=== PATIENT | female | born 1930 | race Caucasian/White ===

== ENCOUNTER 2017-06-03 15:59 | Inpatient (IN) ==
--- NOTE | 2017-06-03 16:42 | Emergency Department Report ---
URI/Sore Throat HPI - General Chief Complaint: Upper Respiratory Infection <Oleg Jeagern Q - 06/03/17 16:41 > Stated Complaint: flu symptons, low oxygen <Javier Jaeger Q - 06/03/17 16:41> Time Seen by Provider: 06/03/17 16:40 <Oleg Jaegern Taj - 06/03/17 16:41> Source: patient, family <Oleg Jaegern Taj - 06/03/17 18:54> Mode of arrival: wheelchair <Oleg Jaegern 06/03/17 18:54> Limitations: no limitations <Oleg Jaegern - 06/03/17 18:54> - History of Present Illness HPI Narrative: Patient is an 87-year-old female, presents fevers primary for evaluation of shortness of air. Patient's had 2 weeks history of cough, congestion, originally was having some fevers however those of resolve. Patient was seen primary medical doctor's office approximately 10 days ago was given a productive diagnosis of influenza however since she was outside the window patient was not started on Tamiflu, instead to cover patient was given azithromycin. Patient took the azithromycin, however no improvement of symptoms continuing to have cough, congestion and low-grade fevers. Today patient was found to be mildly hypoxic oxygen saturations 87-88%, so patient was brought to the ER for evaluation <Oleg Jaegern - 06/03/17 18:54> MD Complaint: fever, sore throat <Oleg Jaegern - 06/03/17 18:54> Onset (ago): week(s) <Oleg Jaegern Taj - 06/03/17 18:54> - Related Data Home Medications Medication Instructions Recorded Confirmed Acetaminophen [Acetaminophen Extra 500 mg PO Q4H PRN 06/03/17 06/03/17 Strength] Carbidopa/Levodopa 1.5 tab PO QID 06/03/17 06/03/17 [Carbidopa-Levodopa 25-100 Tab] Omeprazole [Prilosec] 20 mg PO HS 06/03/17 06/03/17 Rasagiline Mesylate 0.5 mg PO HS 06/03/17 06/03/17 Sertraline [Zoloft] 50 mg PO HS 06/03/17 06/03/17 guaiFENesin [Guaifenesin] 100 mg PO Q4H PRN 06/03/17 06/03/17 <Javier Jaeger Q - 06/03/17 16:41> Allergies Allergy/AdvReac Type Severity Reaction Status Date / Time Iodinated Contrast- Oral and Allergy Unknown Verified 06/03/17 16:28 IV Dye <Javier Jaeger Q - 06/03/17 16:41> Review of Systems Constitutional: Denies: fever, chills <Javier Jaeger Q - 06/03/17 18:54> ENT: Denies: ear pain, throat pain, dental pain <Javier Jaeger Q - 06/03/17 18 :54> Cardiovascular: Reports: dyspnea on exertion. Denies: chest pain, palpitations <Javier Jaeger Q - 06/03/17 18:54> Respiratory: Reports: cough, dyspnea. Denies: wheezes <Javier Jaeger Q - 09/13 18:54> Gastrointestinal: Denies: abdominal pain, nausea, vomiting <Javier Jaeger Q - 06/03/17 18:54> Neurological: Denies: headache, weakness <Javier Jaeger Q - 06/03/17 18:54> PFSH Patient Stated Medical History Dementia Yes Parkinson's Disease Yes: "PARKINSISMS" Bronchitis Yes: HX OF Hx Incontinence Yes Anemia Yes Osteoarthritis Yes Shingles Yes Depression Yes: SERTRALINE <Javier Jaeger Q - 06/03/17 16:41> - Social History Smoking status: Never smoker <Javier Jaeger Q - 06/03/17 16:41> Substance use type: does not use <Javier Jaeger Q - 06/03/17 18:54> Alcohol intake frequency: does not drink <Javier Jaeger Q - 06/03/17 18:54> Physical Exam - Limitations Limitations: physical limitation <Javier Jaeger Q - 06/03/17 18:54> - Eye Eye exam: Present: PERRL, EOMI <Javier Jaeger Q - 06/03/17 18:54> - ENT ENT exam: Present: normal oropharynx, mucous membranes moist <Javier Jaeger Q - 06/03/17 18:54> - Chest Chest inspection: Present: symmetric chest wall rise. Absent: tenderness < Javier Jaeger 06/03/17 18:54> - Respiratory Respiratory exam: Present: crackles. Absent: accessory muscle use, prolonged expiratory phase <Javier Jaeger 06/03/17 18:54> - Cardiovascular Cardiovascular exam: Present: regular rate, normal rhythm, normal heart sounds <Javier Jaeger 06/03/17 18:54> - Abdominal Exam Abdominal exam: Present: soft, normal bowel sounds. Absent: distention, tenderness <Javier Jaeger 06/03/17 18:54> - Back Exam Back exam: Absent: CVA tenderness (R), CVA tenderness (L) <Javier Jaeger 06/03/17 18:54> - Skin Skin exam: Present: warm, dry <Javier Jaeger 06/03/17 18:54> - Neurological Exam Neurological exam: Present: alert, oriented X3 <Javier Jaeger 06/03/17 18: 54> - Psychiatric Psychiatric exam: Present: normal affect, normal mood <Javier Jaeger 06/03 18:54> Course - Consultations Consultation #1: Telehospitalist: Will place pt in the hospital. Requests 1gm IV vanc to cover for possible MRSA. Requests DNR status documentation. <06/03/17 19:17> Time: 19:10 <06/03/17 19:17> Vital Signs Temperature 97.5 F 06/03/17 16:16 Pulse Rate 102 H 06/03/17 16:16 Respiratory Rate 26 H 06/03/17 16:16 Blood Pressure 107/65 06/03/17 16:16 Pulse Oximetry 87 L 06/03/17 16:16 Temperature 96.9 F 06/04/17 07:30 Pulse Rate 69 06/04/17 07:30 Respiratory Rate 18 06/04/17 07:30 Blood Pressure 147/69 H 06/04/17 07:30 Pulse Oximetry 97 06/04/17 07:30 <Jaiver Jaeger 06/03/17 16:41> Upper Respiratory Infection - MDM Narrative Medical decision making narrative: Care of pt assumed at 1900. Pt with s/s c/w of CAP following influenza. PORT score is 127. Will contact hospitalist for eval and likely admission. <August,[facility] - 06/03/17 19:14> - Differential Diagnosis Differential diagnosis: Likely: upper respiratory infection, otitis media, viral infection, bronchitis, influenza, pharyngitis <August,[facility] 06/03/17 19 :14> - Medical Records Attestation: I reviewed the patient's medical records. <August,[facility] 19:14> - Lab Data Attestation: I reviewed the patient's lab results. <August,[facility] 06/03/17 19:14> I reviewed the patient's lab results. <MilJavier - 06/03 18:54> Result diagrams: 06/04/17 03:59 06/04/17 03:59 <WinonaJavier - 06/03/17 16:41> Lab Results 06/03/17 06/03/17 06/03/17 Range/Units 17:24 17:24 17:24 WBC 9.8 (4.5-11.0) T/MM3 RBC 3.90 L (4.00-5.20) M/MM3 Hgb 11.6 L (12-16) GM/DL Hct 37.1 (36-46) % MCV 95.1 (80-100) UM3 MCH 29.7 (26-34) UUG MCHC 31.3 (31-37) GM/DL RDW Std Deviation 51.6 H (36.9-50.2) FL Plt Count 576 H (130-400) T/MM3 MPV 8.7 L (9.4-12.4) UM3 Immature Gran % (Auto) 0.5 (0.0-0.5) % Neut % (Auto) 75.7 H (33-66) % Lymph % (Auto) 15.2 L (23-45) % [place] % (Auto) 8.4 (0-9.0) % Eos % (Auto) 0.0 (0-4) % Baso % (Auto) 0.2 (0-2) % Neut # (Auto) 7.4 (1.8-7.7) T/MM3 Lymph # (Auto) 1.5 (1-4.8) T/MM3 [place] # (Auto) 0.8 (0-0.8) T/MM3 Eos # (Auto) 0.0 (0-0.5) T/MM3 Baso # (Auto) 0.0 (0-0.2) T/MM3 Abs Immat Gran (auto) 0.05 H (0.00-0.03) T/MM3 VBG pH (7.31-7.41) VBG pCO2 (40-52) MMHG VBG pO2 (40-52) MMHG VBG HCO3 (22-26) MEQ/L VBG Total CO2 MEQ/L VBG O2 Saturation % VBG Base Excess (-2.0-2.0) MMOL/L O2 Delivery Method Turbidity < 20 (0-20) Sodium 144 (134-144) MEQ/L Potassium 4.4 (3.6-5) MEQ/L Chloride 110 H (98-107) MEQ/L Carbon Dioxide 24 (22-30) MEQ/L Anion Gap 10 (5-15) MEQ/L BUN 29.0 H (7-17) MG/DL Creatinine 0.9 (0.7-1.2) MG/DL GFR Calculation 59 BUN/Creatinine Ratio 32 H (6-26) RATIO Glucose 132 H (65-110) MG/DL Calculated Osmolality 285 H (261-280) MOSM/KG Calcium 9.3 (8.4-10.2) MG/DL Total Bilirubin 0.60 (0.20-1.30) MG/DL Icterus Index < 2 (0-7) AST 52 H (14-36) U/L ALT 55 H (9-52) U/L Alkaline Phosphatase 122 (38-126) U/L Troponin I 0.018 (0-0.12) ng/ml B-Natriuretic Peptide 3470 H (0-175) pg/mL Total Protein 7.5 (6.3-8.2) G/DL Albumin 3.8 (3.5-5.0) G/DL Globulin 3.7 H (2.4-3.6) G/DL Albumin/Globulin Ratio 1.0 L (1.1-2.2) RATIO Plasma Lactate 1.6 (0.6-2.2) MMOL/L Procalcitonin 0.61 NG/ML Specimen Hemolysis < 15 (0-25) 06/03/17 Range/Units 19:13 WBC (4.5-11.0) T/MM3 RBC (4.00-5.20) M/MM3 Hgb (12-16) GM/DL Hct (36-46) % MCV (80-100) UM3 MCH (26-34) UUG MCHC (31-37) GM/DL RDW Std Deviation (36.9-50.2) FL Plt Count (130-400) T/MM3 MPV (9.4-12.4) UM3 Immature Gran % (Auto) (0.0-0.5) % Neut % (Auto) (33-66) % Lymph % (Auto) (23-45) % [place] % (Auto) (0-9.0) % Eos % (Auto) (0-4) % Baso % (Auto) (0-2) % Neut # (Auto) (1.8-7.7) T/MM3 Lymph # (Auto) (1-4.8) T/MM3 [place] # (Auto) (0-0.8) T/MM3 Eos # (Auto) (0-0.5) T/MM3 Baso # (Auto) (0-0.2) T/MM3 Abs Immat Gran (auto) (0.00-0.03) T/MM3 VBG pH 7.550 H (7.31-7.41) VBG pCO2 30 L (40-52) MMHG VBG pO2 86 H (40-52) MMHG VBG HCO3 26 (22-26) MEQ/L VBG Total CO2 27.1 MEQ/L VBG O2 Saturation 98.0 % VBG Base Excess 4.3 H (-2.0-2.0) MMOL/L O2 Delivery Method Room air Turbidity (0-20) Sodium (134-144) MEQ/L Potassium (3.6-5) MEQ/L Chloride (98-107) MEQ/L Carbon Dioxide (22-30) MEQ/L Anion Gap (5-15) MEQ/L BUN (7-17) MG/DL Creatinine (0.7-1.2) MG/DL GFR Calculation BUN/Creatinine Ratio (6-26) RATIO Glucose (65-110) MG/DL Calculated Osmolality (261-280) MOSM/KG Calcium (8.4-10.2) MG/DL Total Bilirubin (0.20-1.30) MG/DL Icterus Index (0-7) AST (14-36) U/L ALT (9-52) U/L Alkaline Phosphatase (38-126) U/L Troponin I (0-0.12) ng/ml B-Natriuretic Peptide (0-175) pg/mL Total Protein (6.3-8.2) G/DL Albumin (3.5-5.0) G/DL Globulin (2.4-3.6) G/DL Albumin/Globulin Ratio (1.1-2.2) RATIO Plasma Lactate (0.6-2.2) MMOL/L Procalcitonin NG/ML Specimen Hemolysis (0-25) <Javier Jaeger Q - 06/03/17 18:54> - Radiology Data Attestation: I reviewed the patient's radiology results. <AugustVinh M 09/13 19:14> I reviewed the patient's radiology results. <Javier Jaeger Q 06/03/17 18:54> Left lower lobe infiltrate <Javier Jaeger Q 06/03/17 18:54> Disposition Clinical Impression: Hypoxia CAP (community acquired pneumonia) Qualifiers: Laterality: right Lung location: lower lobe of lung Qualified Code(s): J18.1 - Lobar pneumonia, unspecified organism <Javier Jaeger Q - 06/04/17 12:44> Disposition: 02 To [facility] Acute Care <Javier Jaeger Q - 06/04/17 12:44> Print Language: Slovak <Javier Jaeger Q - 06/04/17 12:44> Condition: Improved <Javier Jaeger Q - 06/04/17 12:44> Instructions: <Javier Jaeger Q - 06/03/17 16:41> Prescriptions: No Action Rasagiline Mesylate 0.5 mg PO HS Acetaminophen [Acetaminophen Extra Strength] 500 mg PO Q4H PRN PRN Reason: Pain Carbidopa/Levodopa [Carbidopa-Levodopa 25-100 Tab] 1.5 tab PO QID guaiFENesin [Guaifenesin] 100 mg PO Q4H PRN PRN Reason: Prn Orders Sertraline [Zoloft] 50 mg PO HS Omeprazole [Prilosec] 20 mg PO HS <Javier Jaeger Q - 06/03/17 16:41> Referrals: Willy Shankar DO [Family Provider] - <Javier Jaeger - 06/03/17 16: 41> Forms: <Javier Jaeger - 06/03/17 16:41> Time of Disposition: 19:17 <AugustVinh - 06/03/17 19:17> - Seen By: physician <AugustVinh - 06/03/17 19:17>
--- OUTSIDE RECORDS SUMMARY | 2017-06-03 16:47 | External Medical Summary | Referral Summary ---
:1930 Author [facility] Address [address] [place] [address] [place] [id number] Care Team Providers Name Role Phone Willy Shankar Primary Care Physician Encounter VC Date(s): 05/04/15 - 05/04/15 [facility] [place] [phone] [place] Discharge Diagnosis: Cough Discharge Disposition: 01-Home or Self Care Attending Physician: Shreya Joyner APRN Admitting Physician: Shreya Joyner APRN Vital Signs Most recent to oldest [Reference Range]: 1 Temperature Tympanic [36.6-38.1 degC] 36.5 degC *LOW* (05/04/15 10:42 AM) Peripheral Pulse Rate [60-100 bpm] 66 bpm (05/04/15 10:42 AM) Blood Pressure [90-140/60-90 mmHg] 110/54 mmHg (05/04/15 10:42 AM) SpO2 96 % (05/04/15 10:42 AM) Problem List Condition Effective Dates Status Health Status Informant Allergic rhinitis(Confirmed) Active Alzheimer's disease Active (disorder)(Confirmed) Alzheimer's disease(Confirmed) Active Basal cell carcinoma(Confirmed)1 Active Benign essential tremor(Confirmed) Active Diarrhea (finding)(Confirmed) Active Diarrhea(Confirmed) Active Hay fever(Confirmed) Active Irritable bowel syndrome(Confirmed) Active Parkinsonism(Confirmed) Active 1Facial Surgery Allergies, Adverse Reactions, Alerts No Known Allergies Medications carbidopa-levodopa 25 mg-100 mg oral tablet 1 tabs, Oral, QID, # 270 tabs, 2 Refill(s), Pharmacy: [facility] Start Date: 03/31/15 Status: Orderedconjugated estrogens 0.625 mg/g vaginal cream with applicator 1 g, Vaginal, qPM, # 42 g, 2 Refill(s), Pharmacy: [facility] Start Date: 01/10/15 Status: Orderedmelatonin 10 mg oral capsule 1 caps, Oral, Bedtime (once a day), 0 Refill(s) Start Date: 08/20/14 Status: OrderedNamenda 10 mg oral tablet 10 mg 1 tabs, Oral, BID, last refill until seen you will need to set up appointment with a new doc. or Dr. Castorena, # 60 tabs, 0 Refill(s), Pharmacy: [facility], 1 tabs Oral BID,Instr:last refill until seen ; you will need to set... Start Date: 01/04/15 Status: Orderedomeprazole 20 mg oral delayed release capsule 1 caps, Oral, Daily, # 90 caps, 3 Refill(s), Pharmacy: [facility], 1 caps Oral Daily Start Date: 08/20/14 Status: OrderedProbiotic Formula oral capsule caps, Oral, Daily, 0 Refill(s) Start Date: 06/24/14 Status: Orderedpropranolol 60 mg oral tablet 1 tabs, Oral, TID, # 270 tabs, 3 Refill(s), Pharmacy: [facility], 1 tabs OralTID Start Date: 08/20/14 Status: Orderedsertraline 25 mg oral tablet 1 tabs, Oral, Daily, # 90 tabs, 3 Refill(s), Pharmacy: [facility], 1 tabs Oral Daily Start Date: 08/20/14 Status: Ordered Results Hematology Most recent to oldest [Reference Range]: 1 WBC [5.0-10.0 10*3/uL] 5.9 10*3/uL (05/04/15 11:18 AM) RBC [3.70-5.20] 3.88 (05/04/15 11:18 AM) Hgb [12.0-16.0 gm/dL] 12.0 gm/dL (05/04/15 11:18 AM) Hct [37.0-47.0 %] 37.4 % (05/04/15 11:18 AM) MCV [80.0-96.0 fL] 96.4 fL *HI* (1/6/16 11:18 AM) MCH [26.0-34.0 pg] 30.9 pg (05/04/15 11:18 AM) MCHC [32.0-36.0 gm/dL] 32.1 gm/dL (05/04/15 11:18 AM) RDW [0.0-14.5 %] 14.4 % (05/04/15 11:18 AM) Platelet [150-400 10*3/uL] 242 10*3/uL (05/04/15 11:18 AM) MPV [8.8-14.8 fL] 9.7 fL (05/04/15 11:18 AM) Neutrophils [50-70 %] 61 % (05/04/15 11:18 AM) Lymphocytes [20-40 %] 30 % (05/04/15 11:18 AM) Monocytes [4-8 %] 6 % (05/04/15 11:18 AM) Eosinophils [0-6 %] 3 % (05/04/15 11:18 AM) Basophils [0-2 %] 0 % (05/04/15 11:18 AM) Neutro Absolute [2.50-7.00 10*3] 3.59 10*3 (05/04/15 11:18 AM) Lymph Absolute [1.00-4.00 10*3] 1.73 10*3 (05/04/15 11:18 AM) [place] Absolute [0.20-0.80 10*3] 0.35 10*3 (05/04/15 11:18 AM) Eos Absolute [0.00-0.60 10*3] 0.18 10*3 (05/04/15 11:18 AM) Baso Absolute [0.00-0.30] 0.02 (05/04/15 11:18 AM) Immunizations Vaccine Date Refusal Reason influenza virus vaccine, inactivated 02/22/14 influenza virus vaccine, live 02/06/13 influenza virus vaccine, live 02/04/12 pneumococcal 13-valent conjugate vaccine 02/22/14 pneumococcal 23-polyvalent vaccine 01/10/15 tetanus-diphth toxoids (Td) adult/adol 01/11/09 zoster vaccine live 01/11/09 Procedures Procedure Date Related Diagnosis Body Site Procedure - Right Carpal Ganglionectomy 7/8/10 Basal cell carcinoma Removal1 2009 Basal cell carcinoma Removal2 2006 Appendectomy Cataract Left 12nd removal L Eye.21st one chin Social History Social History Type Response Smoking Status Never smoker Assessment and Plan No data available for this section
--- OUTSIDE RECORDS SUMMARY | 2017-06-03 16:47 | External Medical Summary | Referral Summary ---
:1930 Author Organization [facility] Address [address] [facility] [address] [place] [address] Care Team Providers Name Role Phone Willy Shankar Primary Care Physician Encounter VC Date(s): 02/28/16 - 02/28/[address] [facility] [address] [facility] [address] [place] [address]- [place] Discharge Diagnosis: Atypical parkinsonism Discharge Disposition: 01-Home or Self Care Attending Physician: Aldair Roman MD Admitting Physician: Aldair Roman MD Vital Signs Most recent to oldest [Reference Range]: 1 Peripheral Pulse Rate [60-100 bpm] 71 bpm (02/28/16 3:20 PM) Blood Pressure [90-140/60-90 mmHg] 108/58 mmHg (02/28/16 3:20 PM) SpO2 95 % (02/28/16 3:20 PM) Problem List Condition Effective Dates Status Health Status Informant Allergic rhinitis(Confirmed) Active Alzheimer's disease Active (disorder)(Confirmed) Alzheimer's disease(Confirmed) Active Basal cell carcinoma(Confirmed)1 Active Benign essential tremor(Confirmed) Active Diarrhea (finding)(Confirmed) Active Diarrhea(Confirmed) Active Hay fever(Confirmed) Active Irritable bowel syndrome(Confirmed) Active Parkinsonism(Confirmed) Active 1Facial Surgery Allergies, Adverse Reactions, Alerts Substance Reaction Severity Status iodine Active Medications Azilect 1 mg oral tablet 1 mg 1 tabs, Oral, Daily, take 0.5 tab for 14 days, then increase to 1 tab daily , # 30 tabs, 11 Refill(s), Pharmacy: [facility] [id number], 1 tabs Oral Daily,x30 days,Instr:take 0.5 tab for 14 days, then increase to 1 tab daily Start Date: 02/28/16 Stop Date: 02/22/17 Status: OrderedBenadryl 25 mg oral tablet See Instructions, 2 tabs Oral 1 hr prior to exam, # 2 tabs, 0 Refill(s), Pharmacy: [facility] [id number], 2 tabs Oral 1 hr prior to exam Start Date: 01/19/16 Stop Date: 02/02/16 Status: Orderedcarbidopa-levodopa 25 mg-100 mg oral tablet 2 tabs, Oral, TID, # 180 tabs, 4 Refill(s), [facility] Start Date: 01/09/16 Stop Date: 06/07/16 Status: Orderedcetirizine Daily, 0 Refill(s) Start Date: 12/26/15 Status: OrderedDiflucan 150 mg oral tablet 150 mg 1 tabs, Oral, qWeek, # 4 tabs, 0 Refill(s), Pharmacy: [facility] [id number], 1 tabs OralqWeek Start Date: 02/24/16 Stop Date: 03/26/16 Status: OrderedHospital Bed (DME) DME Item Hospital bed, See Instructions, # 1 Each, 0 Refill(s), Supply Start Date: 12/29/15 Status: Orderednystatin 100,000 units/g topical cream 1 idalia, Topical, BID, to affected area, # 15 g, 0 Refill(s) Start Date: 09/16/15 Status: Orderedomeprazole 20 mg oral delayed release capsule 20 mg 1 caps, Oral, Daily, # 90 caps, 3 Refill(s), Pharmacy: [facility], 1 caps Oral Daily Start Date: 07/21/15 Status: Orderedsertraline 25 mg oral tablet 25 mg 1 tabs, Oral, Daily, # 90 tabs, 3 Refill(s), Pharmacy: [facility], 1 tabs Oral Daily Start Date: 10/11/15 Status: Ordered Results No data available for this section Immunizations Vaccine Date Refusal Reason influenza virus vaccine, inactivated 02/22/14 influenza virus vaccine, live 02/06/13 influenza virus vaccine, live 02/04/12 pneumococcal 13-valent conjugate vaccine 02/22/14 pneumococcal 23-polyvalent vaccine 01/10/15 tetanus-diphth toxoids (Td) adult/adol 01/11/09 zoster vaccine live 01/11/09 Procedures Procedure Date Related Diagnosis Body Site Procedure - Right Carpal Ganglionectomy 11/03/09 Basal cell carcinoma Removal1 2009 Basal cell carcinoma Removal2 2006 Appendectomy Cataract Left 12nd removal L Eye.21st one chin Social History Social History Type Response Smoking Status Never smoker Assessment and Plan Extracted from: Title: Office Visit Note Author: Aldair Roman MD Date: 02/28/16 Assessment/Plan 1.- Gait disturbances 2.- Cognitive impairment 3.- Urinary incontinence 4.- Parkinsonism 5.- Abnormal Datscan 86 yo F with progressive cognitive and gait disturbances for at least 4 years. 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 Another possibility brought up is a concomitant NPH process. I discussed w pt's daughter and son in law, the chances of having two different proces ses are low but not zero. Given reported improvement to higher doses of levodopa, I will add Azilect and re-eval in 1-2 months. If no improvement is noted, family may consider cysternography for eval of possible concomitant NPH. They do consider that if cysternography is positive , they will proceed with shunt in order to improve her life quality/gait if possible. They do understand there is the chance that after shunt placement,cognition and gait my not significantly improve. Time spent with the patient was 25 minutes. Greater than 50% of that time was spent counseling the patient, discussing treatment plan and options, answering questions, and follow up plan.
--- OUTSIDE RECORDS SUMMARY | 2017-06-03 16:47 | External Medical Summary | Referral Summary ---
:1930 Author Organization [facility] Address [address] [place] [address] [place] [phone] Care Team Providers Name Role Phone Willy Shankar Primary Care Physician Encounter VC Date(s): 03/08/15 - 03/08/15 [facility] [address] [place] [phone] [place] Discharge Diagnosis: Cough Discharge Diagnosis: Vaginal odor Discharge Disposition: 01-Home or Self Care Attending Physician: Shreya Joyner APRN Admitting Physician: Shreya Joyner APRN Vital Signs Most recent to oldest [Reference Range]: 1 Temperature Tympanic [36.6-38.1 degC] 36.5 degC *LOW* (03/08/15 10:04 AM) Peripheral Pulse Rate [60-100 bpm] 64 bpm (03/08/15 10:04 AM) Blood Pressure [90-140/60-90 mmHg] 108/54 mmHg (03/08/15 10:04 AM) SpO2 95 % (03/08/15 10:04 AM) Problem List Condition Effective Dates Status Health Status Informant Allergic rhinitis(Confirmed) Active Alzheimer's disease Active (disorder)(Confirmed) Alzheimer's disease(Confirmed) Active Basal cell carcinoma(Confirmed)1 Active Benign essential tremor(Confirmed) Active Diarrhea (finding)(Confirmed) Active Diarrhea(Confirmed) Active Hay fever(Confirmed) Active Irritable bowel syndrome(Confirmed) Active Parkinsonism(Confirmed) Active 1Facial Surgery Allergies, Adverse Reactions, Alerts No Known Allergies Medications betamethasone dipropionate, augmented 0.05% topical cream 1 idalia, Topical, TID, vaginal itching, to affected area, # 50 g, 0 Refill(s), Pharmacy: [id number] Start Date: 03/08/15 Status: Orderedcarbidopa-levodopa 25 mg-100 mg oral tablet 1 tabs, Oral, TID, # 270 tabs, 0 Refill(s), Pharmacy: [facility] Start Date: 12/27/14 Status: Orderedconjugated estrogens 0.625 mg/g vaginal cream with applicator 1 g, Vaginal, qPM, # 42 g, 2 Refill(s), Pharmacy: [facility] Start Date: 01/10/15 Status: Orderedmelatonin 10 mg oral capsule 1 caps, Oral, Bedtime (once a day), 0 Refill(s) Start Date: 08/20/14 Status: OrderedNamenda 10 mg oral tablet 10 mg 1 tabs, Oral, BID, last refill until seen you will need to set up appointment with a new doc. or Dr. Castorena, # 60 tabs, 0 Refill(s), Pharmacy: [facility], 1 tabs Oral BID,Instr:last refill until seen ; you will need to set... Start Date: 01/04/15 Status: Orderedomeprazole 20 mg oral delayed release capsule 1 caps, Oral, Daily, # 90 caps, 3 Refill(s), Pharmacy: [facility], 1 caps Oral Daily Start Date: 08/20/14 Status: OrderedProbiotic Formula oral capsule caps, Oral, Daily, 0 Refill(s) Start Date: 06/24/14 Status: Orderedpropranolol 60 mg oral tablet 1 tabs, Oral, TID, # 270 tabs, 3 Refill(s), Pharmacy: [facility], 1 tabs OralTID Start Date: 08/20/14 Status: Orderedsertraline 25 mg oral tablet 1 tabs, Oral, Daily, # 90 tabs, 3 Refill(s), Pharmacy: [facility], 1 tabs Oral Daily Start Date: 08/20/14 Status: OrderedZithromax Z-Oseas 250 mg oral tablet 1 packets, Oral, Daily, as directed on package labeling, X 5 days, # 6 tabs, 0 Refill(s), Pharmacy: [id number], 1 packets Oral Daily,x5 days, Instr:as directed on package labeling Start Date: 03/08/15 Stop Date: 03/13/15 Status: Ordered Results Hematology Most recent to oldest [Reference Range]: 1 WBC [5.0-10.0 10*3/uL] 8.2 10*3/uL (03/08/15 11:37 AM) RBC [3.70-5.20] 3.76 (03/08/15 11:37 AM) Hgb [12.0-16.0 gm/dL] 11.5 gm/dL *LOW* (03/08/15 11:37 AM) Hct [37.0-47.0 %] 35.9 % *LOW* (03/08/15 11:37 AM) MCV [80.0-96.0 fL] 95.5 fL (03/08/15 11:37 AM) MCH [26.0-34.0 pg] 30.6 pg (03/08/15 11:37 AM) MCHC [32.0-36.0 gm/dL] 32.0 gm/dL (03/08/15 11:37 AM) RDW [0.0-14.5 %] 13.8 % (03/08/15 11:37 AM) Platelet [150-400 10*3/uL] 261 10*3/uL (03/08/15 11:37 AM) MPV [8.8-14.8 fL] 10.0 fL (03/08/15 11:37 AM) Neutrophils [50-70 %] 73 % *HI* (03/08/15 11:37 AM) Lymphocytes [20-40 %] 18 % *LOW* (03/08/15 11:37 AM) Monocytes [4-8 %] 7 % (03/08/15 11:37 AM) Eosinophils [0-6 %] 2 % (03/08/15 11:37 AM) Basophils [0-2 %] 0 % (03/08/15 11:37 AM) Neutro Absolute [2.50-7.00 10*3] 5.99 10*3 (03/08/15 11:37 AM) Lymph Absolute [1.00-4.00 10*3] 1.51 10*3 (03/08/15 11:37 AM) Barbour Absolute [0.20-0.80 10*3] 0.53 10*3 (03/08/15 11:37 AM) Eos Absolute [0.00-0.60 10*3] 0.16 10*3 (03/08/15 11:37 AM) Baso Absolute [0.00-0.30] 0.02 (03/08/15 11:37 AM) Urinalysis Most recent to oldest [Reference Range]: 1 UA Color Yellow (03/08/15 11:45 AM) UA Appear Sl Cloudy (03/08/15 11:45 AM) UA pH [5.0-8.0] 5.5 (03/08/15 11:45 AM) UA Leuk Est [Negative] Negative (03/08/15 11:45 AM) UA Nitrite [Negative] Positive *ABN* (03/08/15 11:45 AM) UA Protein [Negative] Pos 1+ *ABN* (03/08/15 11:45 AM) UA Glucose [Negative] Negative (03/08/15 11:45 AM) UA Ketones [Negative] Negative (03/08/15 11:45 AM) UA Urobilinogen 0.2 mg/dL (03/08/15 11:45 AM) UA Bili [Negative] Negative (03/08/15 11:45 AM) UA Blood Negative (03/08/15 11:45 AM) UA Spec Grav [1.003-1.030] 1.025 (03/08/15 11:45 AM) Type Catheter (03/08/15 11:45 AM) UA WBC [0-4] 0-2 (03/08/15 11:45 AM) UA RBC [0-2] None seen (03/08/15 11:45 AM) Epithelial Cells None Seen (03/08/15 11:45 AM) UA Bacteria Numerous *ABN* (03/08/15 11:45 AM) Immunizations Vaccine Date Refusal Reason influenza virus vaccine, inactivated 02/22/14 influenza virus vaccine, live 02/06/13 influenza virus vaccine, live 02/04/12 pneumococcal 13-valent conjugate vaccine 02/22/14 pneumococcal 23-polyvalent vaccine 01/10/15 tetanus-diphth toxoids (Td) adult/adol 01/11/09 zoster vaccine live 01/11/09 Procedures Procedure Date Related Diagnosis Body Site Insertion of non-indwelling bladder catheter 03/08/15 (eg, straight catheterization for residual urine) Procedure - Right Carpal Ganglionectomy 11/03/09 Basal cell carcinoma Removal1 2009 Basal cell carcinoma Removal2 2006 Appendectomy Cataract Left 12nd removal L Eye.21st one chin Social History Social History Type Response Smoking Status Never smoker Assessment and Plan No data available for this section
--- OUTSIDE RECORDS SUMMARY | 2017-06-03 16:47 | External Medical Summary | Referral Summary ---
:1930 Author Organization [facility] Address [address] [place] [address] [place] [phone] Care Team Providers Name Role Phone Willy Shankar Primary Care Physician Encounter VC Date(s): 09/09/15 - 09/09/15 [facility] [address] [place] [phone] [place] Discharge Diagnosis: Parkinson disease Discharge Diagnosis: Stage II pressure sore Discharge Disposition: 01-Home or Self Care Attending Physician: Willy Shankar DO Admitting Physician: Willy Shankar DO Vital Signs Most recent to oldest [Reference Range]: 1 Temperature Tympanic [36.6-38.1 degC] 36.4 degC *LOW* (09/09/15 11:01 AM) Apical Heart Rate [60-100 bpm] 72 bpm (09/09/15 11:01 AM) Blood Pressure [90-140/60-90 mmHg] 98/50 mmHg (09/09/15 11:01 AM) Problem List Condition Effective Dates Status Health Status Informant Allergic rhinitis(Confirmed) Active Alzheimer's disease Active (disorder)(Confirmed) Alzheimer's disease(Confirmed) Active Basal cell carcinoma(Confirmed)1 Active Benign essential tremor(Confirmed) Active Diarrhea (finding)(Confirmed) Active Diarrhea(Confirmed) Active Hay fever(Confirmed) Active Irritable bowel syndrome(Confirmed) Active Parkinsonism(Confirmed) Active 1Facial Surgery Allergies, Adverse Reactions, Alerts Substance Reaction Severity Status iodine Active Medications carbidopa-levodopa 25 mg-100 mg oral tablet 1 tabs, Oral, QID, # 270 tabs, 2 Refill(s), Pharmacy: [facility] Start Date: 03/31/15 Status: OrderedDUODERM DUODERM, See Instructions, DUODERM EXTRA THIN SPOTS/ APPLY ONCE DAILY OR NEEDED, # 1 boxes, 1 Refill(s), Pharmacy: [id number], DUODERM EXTRA THIN SPOTS/ APPLY ONCE DAILY OR NEEDED Start Date: 09/02/15 Status: Orderedomeprazole 20 mg oral delayed release capsule 20 mg 1 caps, Oral, Daily, # 90 caps, 3 Refill(s), Pharmacy: [facility], 1 caps Oral Daily Start Date: 07/21/15 Status: OrderedProbiotic Formula oral capsule caps, Oral, Daily, 0 Refill(s) Start Date: 06/24/14 Status: Orderedpropranolol 60 mg oral tablet 30 mg 0.5 tabs, Oral, BID, # 30 tabs, 0 Refill(s), Pharmacy: [facility], 0.5 tabs Oral BID,x30 days Start Date: 07/27/15 Stop Date: 08/26/15 Status: Orderedsertraline 25 mg oral tablet 1 tabs, Oral, Daily, # 90 tabs, 3 Refill(s), Pharmacy: [facility], 1 tabs Oral Daily Start Date: 08/20/14 Status: Ordered Results No data available for [...] Extracted from: Title: Office Visit Note Author: Willy Shankar DO Date: 09/09/15 Assessment/Plan Parkinson disease, Parkinson's disease 1. Continue with carbidopa levodopa as previous. 2. Continue with propranolol 30 mg twice a day. If her blood pressures dropped lower than we may decrease the medication to 10 mg twice a day. Ordered: Office Visit Level 3 Est 52341 Pressure ulcer of right buttock, stage 2, Stage II pressure sore 1. Wound care referral for evaluation and treatment of pressure ulcer to the right buttock region. Ordered: Office Visit Level 3 Est 63209
--- OUTSIDE RECORDS SUMMARY | 2017-06-03 16:47 | External Medical Summary | Referral Summary ---
:1930 Author Care Team Providers Name Role Phone Nuria Damon Primary Care Physician Encounter [facility] [id number] Date(s): 08/20/14 - 08/20/14 [facility] LONNIE Rodriguez, Kiran, Family [address] [place] [id number] Discharge Diagnosis: Benign essential tremor Discharge Diagnosis: Alzheimer's disease Discharge Diagnosis: Parkinsonism Discharge Disposition: Home or Self Care Attending Physician: Nuria Damon MD Admitting Physician: Nuria Damon MD Vital Signs Most recent to oldest [Reference Range]: 1 Temperature Tympanic [36.6-38.1 degC] 37.3 degC (08/20/14 9:59 AM) Peripheral Pulse Rate [60-100 bpm] 58 bpm *LOW* (08/20/14 9:59 AM) Blood Pressure [90-140/60-90 mmHg] 100/60 mmHg (08/20/14 9:59 AM) Problem List Condition Effective Dates Status [...] TID, # 270 tabs, 3 Refill(s), Pharmacy: [id number] Start Date: 08/20/14 Status: Orderedmelatonin 10 mg oral capsule 1 caps, Oral, Bedtime (once a day), 0 Refill(s) Start Date: 08/20/14 Status: Orderedmemantine 21 mg oral capsule, extended release 1 caps, Oral, Daily, # 90 caps, 3 Refill(s), Pharmacy: [facility], 1 caps Oral Daily Start Date: 08/20/14 Status: Orderedomeprazole 20 mg oral delayed release capsule 1 caps, Oral, Daily, # 90 caps, 3 Refill(s), Pharmacy: [facility], 1 caps Oral Daily Start Date: 08/20/14 Status: OrderedProbiotic Formula oral capsule caps, Oral, Daily, 0 Refill(s) Start Date: 06/24/14 Status: Orderedpropranolol 60 mg oral tablet 1 tabs, Oral, TID, # 270 tabs, 3 Refill(s), Pharmacy: [facility], 1 tabs OralTID Start Date: 08/20/14 Status: Orderedsertraline 25 mg oral tablet 1 tabs, Oral, Daily, # 90 tabs, 3 Refill(s), Pharmacy: [facility], 1 tabs Oral Daily Start Date: 08/20/14 Status: Orderedzolpidem 5 mg oral tablet 1 tabs, Oral, Bedtime (once a day), as needed for sleep, # 90 tabs, 0 Refill(s) Start Date: 08/20/14 Status: Ordered Results No data available for this section Immunizations Vaccine Date Refusal Reason influenza virus vaccine, inactivated 02/22/14 influenza virus vaccine, live 02/06/13 influenza virus vaccine, live 02/04/12 pneumococcal 13-valent conjugate vaccine 02/22/14 tetanus-diphth toxoids (Td) adult/adol 01/11/09 zoster vaccine live 01/11/09 Procedures Procedure Date Related Diagnosis Body Site Procedure - Right Carpal Ganglionectomy 11/03/09 Basal cell carcinoma Removal1 2009 Basal cell carcinoma Removal2 2006 Appendectomy Cataract Left 12nd removal L Eye.21st one chin Social History Social History Type Response Smoking Status Never smoker Assessment and Plan Extracted from: Title: Ambulatory Patient Education Author: Nuria Damon MD Date: 08/20/14 Family Medicine Alzheimer Disease Alzheimer Disease (AD) is a mental disorder. It causes memory loss and loss of other mental functions, such as learning, thinking, solving problems, communicating, and completing tasks. The mental losse s interfere with the ability to perform daily activities at work, at home, or in social situations. AD usually starts in the late 60s or early 70s but can start earlier in life ( familial form ). The mental changes caused by AD are permanent and worsen over time. As the illness progresses, the ability to do even the simplest things is lost. Survival with AD ranges from several years to as long as 20 years. CAUSES AD is caused by abnormally high levels of a protein (beta-amyloid) in the brain. This protein forms very small deposits within and around the brain's nerve cells. These deposits prevent the nerve cells from working properly. Experts are not certain what causes the beta-amyloid deposits in AD. RISK FACTORS The following major risk factors have been identified: Increasing age. Certain genetic variations, such as Down syndrome (trisomy 21). SYMPTOMS The earliest mental change in AD is mild memory loss of recent events, names, or phone numbers. Other symptoms at the beginning of AD include loss of objects , minor loss of vocabulary, and difficulty wi th complex tasks, such as paying bills or driving in unfamiliar locations. At this stage, you are still able to perform daily activities but need greater effort, more time, or memory aids. Other mental functions deteriorate as AD worsens. These changes slowly go from mild to severe. Symptoms at this stage include: Difficulty rememberingYou may not be able to recall personal information such as your address and telephone number. You may become confused about the date, the season of the year, or your location. Difficulty maintaining attentionYou may forget what you wanted to say during conversations and repeat what you have already said. Difficulty learning new information or tasksYou may not remember what you read or the name of a new friend you met. Difficulty counting or doing mathYou may have difficulty with complex math problems. You may make mistakes in paying bills or managing your checkbook. Poor reasoning and judgmentYou may make poor decisions or not dress right for the weather. Difficulty communicatingYou may have regular difficulty remembering words, naming objects, expressing yourself clearly, or writing sentences that make sense. Difficulty performing familiar daily activitiesYou may get lost driving in familiar locations or need help eating, bathing, dressing, grooming, or using the toilet. You may have difficulty maintaining bladder or bowel control. Difficulty recognizing familiar facesYou may confuse family members or close friends with one another. You may not recognize a close relative or may mistake strangers for family. AD also may cause changes in personality and behavior. These changes include loss of interest or motivation, social withdrawal, anxiety, difficulty sleeping , uncharacteristic anger or combativeness, a f alse belief that someone is trying to harm you (paranoia ), seeing things that are not real (hallucinations ), or agitation. Confusion and disruptive behavior are often worse at night and may be trigger ed by changes in the environment or acute medical issues. DIAGNOSIS AD is diagnosed through an assessment by your health care provider. During this assessment, your health care provider will do the following: Ask you and your family, friends, or caregiver questions about your symptoms, their frequency, their duration and progression, and the effect they are having on your life. Ask questions about your personal and family medical history and use of alcohol or drugs, including prescription medicine. Perform a physical exam and order blood tests and brain imaging exams. Your health care provider may refer you to a specialist for detailed evaluation of your mental functions (neuropsychological testing ). Many different brain disorders, medical conditions, and certain substances can cause symptoms that resemble AD symptoms. These must be ruled out before AD can be diagnosed. If AD is diagnosed, it will b e considered either "possible" or "probable" AD. "Possible" AD means that your symptoms are typical of AD and no other disorder is causing them. "Probable" AD means that you also have a family history o f AD or genetic test results that support the diagnosis. Certain tests, mostly used in research studies, are highly specific for AD. TREATMENT There is currently no cure for AD. The goals of treatment are to: Slow down the progression of the disease. Preserve mental function as long as possible. Manage behavioral symptoms. Make life easier for the person with AD and their caregivers. The following treatment options are available: MedicineCertain medicines may help slow memory loss by changing the level of certain chemicals in the brain. Medicine may also help with behavioral symptoms. Talk therapyTalk therapy provides education, support, and memory aids for people with AD. It is most effective in the early stages of the illness. CaregivingCaregivers may be family members, friends, or trained biomedical specialist. They help the person with AD with daily life activities. Caregiving may take place at home or at a nursing facility. Family support groupsThese provide education, emotional support, and information about community resources to family members who are taking care of the person with AD. Document Released: 12/25/2004 Document Revised: 12/16/2013 Document Reviewed: 08/21/2013 ExitCare Patient Information 2014 [email or web address] [facility]. No follow up information was provided. Extracted from: Title: Office Visit Note Author: Nuria Damon MD Date: 08/20/14 Assessment/Plan Alzheimer's disease Benign essential tremor Parkinsonism Orders: carbidopa-levodopa, 1 tabs, Oral, TID, # 270 tabs, 3 Refill(s), Pharmacy: [id number] memantine, 1 caps, Oral, Daily, # 90 caps, 3 Refill(s), Pharmacy: [facility], 1 caps Oral Daily omeprazole, 1 caps, Oral, Daily, # 90 caps, 3 Refill(s), Pharmacy: [facility], 1 caps Oral Daily propranolol, 1 tabs, Oral, TID, # 270 tabs, 3 Refill(s), Pharmacy: [facility], 1 tabs Oral TID sertraline, 1 tabs, Oral, Daily, # 90 tabs, 3 Refill(s), Pharmacy: [facility], 1 tabs Oral Daily zolpidem, 1 tabs, Oral, Bedtime (once a day), as needed for sleep, # 90 tabs , 0 Refill(s)
--- OUTSIDE RECORDS SUMMARY | 2017-06-03 16:47 | External Medical Summary | Referral Summary ---
:1930 Author Organization [facility] Address [address] [place] [address] [place] [phone] Care Team Providers Name Role Phone Willy Shankar Primary Care Physician Encounter [facility] Date(s): 02/24/16 - 02/24/16 [facility] [address] [place] [phone] [place] Discharge Diagnosis: Greater trochanteric bursitis of right hip Discharge Diagnosis: Vaginal candidiasis Discharge Disposition: 01-Home or Self Care Attending Physician: Willy Shankar DO Admitting Physician: Willy Shankar DO Vital Signs Most recent to oldest [Reference Range]: 1 Temperature Tympanic [36.6-38.1 degC] 36.6 degC (02/24/16 2:36 PM) Peripheral Pulse Rate [60-100 bpm] 84 bpm (02/24/16 2:36 PM) Blood Pressure [90-140/60-90 mmHg] 105/62 mmHg (02/24/16 2:36 PM) Problem List Condition Effective Dates Status Health Status Informant Allergic rhinitis(Confirmed) Active Alzheimer's disease Active (disorder)(Confirmed) Alzheimer's disease(Confirmed) Active Basal cell carcinoma(Confirmed)1 Active Benign essential tremor(Confirmed) Active Diarrhea (finding)(Confirmed) Active Diarrhea(Confirmed) Active Hay fever(Confirmed) Active Irritable bowel syndrome(Confirmed) Active Parkinsonism(Confirmed) Active 1Facial Surgery Allergies, Adverse Reactions, Alerts Substance Reaction Severity Status iodine Active Medications Ativan 0.5 mg oral tablet See Instructions, 1 tabs Oral 30 mins prior to exam, can repeat dose once during exam, # 2 Each, 0 Refill(s) Start Date: 01/19/16 Status: OrderedBenadryl 25 mg oral tablet See Instructions, 2 tabs Oral 1 hr prior to exam, # 2 tabs, 0 Refill(s), Pharmacy: [facility] [id number], 2 tabs Oral 1 hr prior to exam Start Date: 01/19/16 Stop Date: 02/02/16 Status: Orderedcarbidopa-levodopa 25 mg-100 mg oral tablet 2 tabs, Oral, TID, # 180 tabs, 4 Refill(s), Pharmacy: [facility] Start Date: 01/09/16 Stop Date: 06/07/16 Status: Orderedcetirizine Daily, 0 Refill(s) Start Date: 12/26/15 Status: OrderedDiflucan 150 mg oral tablet 150 mg 1 tabs, Oral, qWeek, # 4 tabs, 0 Refill(s), Pharmacy: [facility] [id number], 1 tabs OralqWeek Start Date: 02/24/16 Stop Date: 03/26/16 Status: OrderedHospital Bed (DME) DME Item Hospital bed, See Instructions, # 1 Each, 0 Refill(s), Supply Start Date: 12/29/15 Status: OrderedmethylPREDNISolone 32 mg oral tablet See Instructions, 1 tab 12 hrs prior to exam 1 tab 2 hrs prior to exam, # 2 Each, 0 Refill(s), Pharmacy: [facility] [id number], 1 tab 12 hrs prior to exam ; 1 tab 2 hrs prior to exam Start Date: 01/19/16 Status: Orderednystatin 100,000 units/g topical cream 1 idalia, Topical, BID, to affected area, # 15 g, 0 Refill(s) Start Date: 09/16/15 Status: Orderedomeprazole 20 mg oral delayed release capsule 20 mg 1 caps, Oral, Daily, # 90 caps, 3 Refill(s), Pharmacy: [facility], 1 caps Oral Daily Start Date: 07/21/15 Status: Orderedsertraline 25 mg oral tablet 25 mg 1 tabs, Oral, Daily, # 90 tabs, 3 Refill(s), Pharmacy: [facility], 1 tabs Oral Daily Start Date: 10/11/15 Status: Ordered Results No data available for this section Immunizations Vaccine Date Refusal Reason influenza virus vaccine, inactivated 02/22/14 influenza virus vaccine, live 02/06/13 influenza virus vaccine, live 02/04/12 pneumococcal 13-valent conjugate vaccine 02/22/14 pneumococcal 23-polyvalent vaccine 01/10/15 tetanus-diphth toxoids (Td) adult/adol 01/11/09 zoster vaccine live 01/11/09 Procedures Procedure Date Related Diagnosis Body Site Arthrocentesis, aspiration and/or injection, 02/24/16 major joint or bursa (eg, shoulder, hip, knee, subacromial bursa); without ultrasound guidance Procedure - Right Carpal Ganglionectomy 11/03/09 Basal cell carcinoma Removal1 2009 Basal cell carcinoma Removal2 2006 Appendectomy Cataract Left 12nd removal L Eye. one chin Social History Social History Type Response Smoking Status Never smoker Assessment and Plan Extracted from: Title: Office Visit Note Author: Willy Shankar DO Date: 02/24/16 Assessment/Plan Greater trochanteric bursitis of right hip 1. Clinical findings consistent with greater trochanteric bursitis. Injection offered to which the family agreed. Following verbal informed consent, and using sterile technique, greater trochanteric bursa injection was done. Combine medication of 2 mL of Marcaine , 2 mL of one percent lidocaine without epinephri ne and 80 mg of Kenalog was used. Dry dressing was applied and wound care instructions provided. Ordered: Arthro/Asp Major Joint Inj (Shoulder, Hip, Knee) Office Visit Level 4 Est 61569 Vaginal candidiasis 1. Vaginal discharge consistent with vaginal candidiasis. 2. Diflucan 150 mg weekly for one month 3. Follow-up if drainage persists or any new concerns Ordered: Office Visit Level 4 Est 92216
--- OUTSIDE RECORDS SUMMARY | 2017-06-03 16:47 | External Medical Summary | Referral Summary ---
:1930 Author Organization [facility] Address [address] [facility] [address] [place] [address] Care Team Providers Name Role Phone RaadWilly Primary Care Physician Encounter VC Date(s): 05/22/16 - 05/22/[address] [facility] [address] [facility] [address] [place], [place] [address] Discharge Diagnosis: Atypical parkinsonism Discharge Disposition: 01-Home or Self Care Attending Physician: Aldair Roman MD Admitting Physician: Aldair Roman MD Referring Physician: Aldair Roman MD Vital Signs Most recent to oldest [Reference Range]: 1 Peripheral Pulse Rate [60-100 bpm] 88 bpm (05/22/16 11:39 AM) Blood Pressure [90-140/60-90 mmHg] 112/68 mmHg (05/22/16 11:39 AM) Problem List Condition Effective Dates Status Health Status Informant Allergic rhinitis(Confirmed) Active Alzheimer's disease Active (disorder)(Confirmed) Alzheimer's disease(Confirmed) Active Basal cell carcinoma(Confirmed)1 Active Benign essential tremor(Confirmed) Active Diarrhea (finding)(Confirmed) Active Diarrhea(Confirmed) Active Hay fever(Confirmed) Active Irritable bowel syndrome(Confirmed) Active Parkinsonism(Confirmed) Active 1Facial Surgery Allergies, Adverse Reactions, Alerts Substance Reaction Severity Status iodine Active Medications Benadryl 25 mg oral tablet See Instructions, 2 tabs Oral 1 hr prior to exam, # 2 tabs, 0 Refill(s), Pharmacy: [id number], 2 tabs Oral 1 hr prior to exam Start Date: 01/19/16 Stop Date: 02/02/16 Status: Orderedcarbidopa-levodopa 25 mg-100 mg oral tablet 2.5 tabs, Oral, TID, # 225 tabs, 7 Refill(s), Pharmacy: [id number] Start Date: 05/22/16 Stop Date: 01/17/17 Status: Orderedcetirizine Daily, 0 Refill(s) Start Date: 12/26/15 Status: OrderedHospital Bed (DME) DME Item Hospital bed, See Instructions, # 1 Each, 0 Refill(s), Supply Start Date: 12/29/15 Status: Orderednystatin 100,000 units/g topical cream 1 idalia, Topical, BID, to affected area, # 15 g, 0 Refill(s) Start Date: 09/16/15 Status: Orderedomeprazole 20 mg oral delayed release capsule 20 mg 1 caps, Oral, Daily, # 90 caps, 3 Refill(s), Pharmacy: [facility], 1 caps Oral Daily Start Date: 07/21/15 Status: Orderedsertraline 25 mg oral tablet 25 mg 1 tabs, Oral, Daily, # 90 tabs, 3 Refill(s), Pharmacy: [facility], 1 tabs Oral Daily Start Date: 10/11/15 Status: Ordered Results No data available for this section Immunizations Given and Recorded Vaccine Date Status Refusal Reason influenza virus vaccine, inactivated 02/22/14 Recorded influenza virus vaccine, live 02/06/13 Given influenza virus vaccine, live 02/04/12 Given pneumococcal 13-valent conjugate vaccine 02/22/14 Given pneumococcal 23-polyvalent vaccine 01/10/15 Given tetanus-diphth toxoids (Td) adult/adol 01/11/09 Given zoster vaccine live 01/11/09 Given Procedures Procedure Date Related Diagnosis Body Site Procedure - Right Carpal Ganglionectomy 11/03/09 Basal cell carcinoma Removal1 2009 Basal cell carcinoma Removal2 2006 Appendectomy Cataract Left 12nd removal L Eye.21st one chin Social History Social History Type Response Smoking Status Never smoker Assessment and Plan Extracted from: Title: Office Visit Note Author: Aldair Roman MD Date: 05/22/16 Assessment/Plan Atypical parkinsonism Will increase dose of Sinemet to 25/100 2.5 tabs QID, if no improvement is noted, will start to wean off the medication. Explained to daughter and son in law that patient likely has atypical parkinsonism and response to sinemet or parkinson meds is usually minimal if anything. Treatment will focus supportive care and PT.T he lack of bladder incontinence, asymmetry of symports/signs and DatScan makes Normal pressure hydrocephalus less likely. f/u in 3 months
--- OUTSIDE RECORDS SUMMARY | 2017-06-03 16:47 | External Medical Summary | Referral Summary ---
:1930 Author Organization [facility] Address [address] [place] [address] [place] [phone] Care Team Providers Name Role Phone Willy Shankar Primary Care Physician Encounter VC Date(s): 09/15/15 - 09/15/15 [facility] [place], [address] [place] [phone]- Discharge Disposition: 01-Home or Self Care Attending Physician: Toni Castillo PA-C Admitting Physician: Toni Castillo PA-C Vital Signs No data available for this section Problem List Condition Effective Dates Status Health [...] QID, # 270 tabs, 2 Refill(s), Pharmacy: [facility] Start Date: 03/31/15 Status: OrderedDUODERM DUODERM, See Instructions, DUODERM EXTRA THIN SPOTS/ APPLY ONCE DAILY OR NEEDED, # 1 boxes, 1 Refill(s), Pharmacy: [id number], DUODERM EXTRA THIN SPOTS/ APPLY ONCE DAILY OR NEEDED Start Date: 09/02/15 Status: Orderedomeprazole 20 mg oral delayed release capsule 20 mg 1 caps, Oral, Daily, # 90 caps, 3 Refill(s), Pharmacy: [facility], 1 caps Oral Daily Start Date: 07/21/15 Status: OrderedProbiotic Formula oral capsule caps, Oral, Daily, 0 Refill(s) Start Date: 06/24/14 Status: Orderedpropranolol 60 mg oral tablet 30 mg 0.5 tabs, Oral, BID, # 30 tabs, 0 Refill(s), Pharmacy: [facility], 0.5 tabs Oral BID,x30 days Start Date: 07/27/15 Stop Date: 08/26/15 Status: Orderedsertraline 25 mg oral tablet 1 tabs, Oral, Daily, # 90 tabs, 3 Refill(s), Pharmacy: [facility], 1 tabs Oral Daily Start Date: [...]
--- OUTSIDE RECORDS SUMMARY | 2017-06-03 16:47 | External Medical Summary | Referral Summary ---
:1930 Author Organization [facility] Address [address] [facility] [address] [place] [address] Care Team Providers Name Role Phone Willy Shankar Primary Care Physician Encounter VC Date(s): 12/26/15 - 12/26/[address] [facility] [address] [facility] [address] [place], [place] [address] Discharge Diagnosis: Parkinsonism Discharge Disposition: 01-Home or Self Care Attending Physician: Aldair Roman MD Admitting Physician: Aldair Roman MD Vital Signs Most recent to oldest [Reference Range]: 1 Peripheral Pulse Rate [60-100 bpm] 72 bpm (12/26/15 8:37 AM) Blood Pressure [90-140/60-90 mmHg] 92/64 mmHg (12/26/15 8:37 AM) Problem List Condition Effective Dates Status [...] QID, # 270 tabs, 2 Refill(s), Pharmacy: [facility] Start Date: 03/31/15 Status: Orderedcarbidopa-levodopa 25 mg-100 mg oral tablet 2 tabs, Oral, TID, # 180 tabs, 4 Refill(s), Pharmacy: [id number] Start Date: 12/26/15 Stop Date: 05/24/16 Status: Orderedcetirizine Daily, 0 Refill(s) Start Date: 12/26/15 Status: OrderedDUODERM DUODERM, See Instructions, DUODERM EXTRA THIN SPOTS/ APPLY ONCE DAILY OR NEEDED, # 1 boxes, 1 Refill(s), Pharmacy: [id number], DUODERM EXTRA THIN SPOTS/ APPLY ONCE DAILY OR NEEDED Start Date: 09/02/15 Status: Orderednystatin 100,000 units/g topical cream 1 idalia, Topical, BID, to affected area, # 15 g, 0 Refill(s) Start Date: 09/16/15 Status: Orderedomeprazole 20 mg oral delayed release capsule 20 mg 1 caps, Oral, Daily, # 90 caps, 3 Refill(s), Pharmacy: [facility], 1 caps Oral Daily Start Date: 07/21/15 Status: OrderedProbiotic Formula oral capsule caps, Oral, Daily, 0 Refill(s) Start Date: 06/24/14 Status: Orderedpropranolol 60 mg oral tablet 30 mg 0.5 tabs, Oral, BID, # 30 tabs, 0 Refill(s), Pharmacy: [facility], 0.5 tabs Oral BID,x30 days Start Date: 07/27/15 Stop Date: 08/26/15 Status: Orderedsertraline 25 mg oral tablet 25 mg 1 tabs, Oral, Daily, # 90 tabs, 3 Refill(s), Pharmacy: [facility], 1 tabs Oral Daily Start Date: [...] Visit Note Author: Aldair Roman MD Date: 12/26/15 Assessment/Plan Parkinsonism 85 yo F presents to establish care. Daughter provides HPI. Gradual progressive parkinsonism and cognitive impairment onset about 4 years ago. The concomitant presence of cognitive impairment at the time of onset is suggestive of atypical parkinsonism (? Lewy Body Dementia, PSP , MSA)rather than idiopathic Parkinson's disease. Plan Will try higher doses of Levodopa and monitor for improvement in symptoms. Increase Sinemet 25/100 to 1.5 tab TID for 5 days, then 2 tabs TID. Will do CTH as patient has not had head imaging. No need for Dago-Scan as it wont slubber frame changer. Hospital bed ordered. Recommended to given the medication 30 min before meals to improve absorption. Will wean off propranolol d/t hypotension. Will re-assess in 2 months, if improvement is noted, pt may be able to start PT again. Will also start Donepezil next visit for memory impairment. May also try Pramipexole as it may help with mood. Discussed with patient and/or relatives my impressions, clinical features, diagnosis, treatment options (medications, surgical, therapy) as well as prognosis. Discussed about fall and dysphagia precautions. All questions answered. F/u in 2 months. Time spent with the patient was60 minutes. Greater than 50% of that time was spent counseling the patient, discussing treatment plan and options, answering questions, and follow up plan. Orders: carbidopa-levodopa, 2 tabs, Oral, TID, # 180 tabs, 4 Refill(s), Pharmacy: [facility] [id number]
--- OUTSIDE RECORDS SUMMARY | 2017-06-03 16:47 | External Medical Summary | Referral Summary ---
:1930 Author [facility] Address [address] [place] [address] [place] [phone] Care Team Providers Name Role Phone Willy Shankar Primary Care Physician Encounter VC Date(s): 12/02/15 - 12/02/15 [facility] [place] [place] [phone] [place] Discharge Disposition: 01-Home or Self Care Attending Physician: Willy Shankar DO Admitting Physician: Willy Shankar DO Vital Signs Most recent to oldest [Reference Range]: 1 Temperature Tympanic [36.6-38.1 degC] 36.4 degC *LOW* (12/02/15 11:03 AM) Apical Heart Rate [60-100 bpm] 73 bpm (12/02/15 11:03 AM) Blood Pressure [90-140/60-90 mmHg] 102/58 mmHg (12/02/15 11:03 AM) SpO2 97 % (12/02/15 11:03 AM) Problem List Condition Effective Dates Status [...] QID, # 270 tabs, 2 Refill(s), Pharmacy: [facility] Start Date: 03/31/15 Status: OrderedDUODERM DUODERM, See Instructions, DUODERM EXTRA THIN SPOTS/ APPLY ONCE DAILY OR NEEDED, # 1 boxes, 1 Refill(s), Pharmacy: [facility] [id number], DUODERM EXTRA THIN SPOTS/ APPLY ONCE DAILY OR NEEDED Start Date: 09/02/15 Status: Orderednystatin 100,000 units/g topical cream 1 idalia, Topical, BID, to affected area, # 15 g, 0 Refill(s) Start Date: 09/16/15 Status: Orderedomeprazole 20 mg oral delayed release capsule 20 mg 1 caps, Oral, Daily, # 90 caps, 3 Refill(s), Pharmacy: Pharmacy, 1 caps Oral Daily Start Date: 07/21/15 Status: OrderedProbiotic Formula oral capsule caps, Oral, Daily, 0 Refill(s) Start Date: 06/24/14 Status: Orderedpropranolol 60 mg oral tablet 30 mg 0.5 tabs, Oral, BID, # 30 tabs, 0 Refill(s), Pharmacy: Pharmacy, 0.5 tabs Oral BID,x30 days Start Date: 07/27/15 Stop Date: 08/26/15 Status: Orderedsertraline 25 mg oral tablet 25 mg 1 tabs, Oral, Daily, # 90 tabs, 3 Refill(s), Pharmacy: Pharmacy, 1 tabs Oral Daily Start Date: [...] Visit Note Author: Willy Shankar DO Date: 12/02/15 Assessment/Plan Vaginitis, 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 Pathophysiology of this presentation discussed in detail, all questions are answered. Handout was provided. 2. Premarin cream application every other day, first treatment was done in the office. A sample of the medication was provided to the daughter. 3. Follow-up if worsening presentation. Ordered: Office Visit Level 4 Est 55302 Extracted from: Title: Ambulatory Patient Education Author: Willy Shankar DO Date: 12/02/15 Family Medicine Atrophic Vaginitis Atrophic vaginitis is when your vagina becomes dry. It is caused by low levels of female hormones (estrogen). This condition is most common in women who have gone through menopause. This is the normal t ashvin of life when you do not get your period as often and you eventually stop getting it. HOME CARE Take medicines only as told by your doctor. Ask your doctor about using [id number]: Creams. Lubricants. Moisturizers. Do not douche. Do not use any herbal or alternative medicines unless your doctor says it is okay. Do not use products that can dry out your vagina, such as scented: Feminine sprays. Tampons. Soaps. Talk to your sexual partner if it hurts to have sex. Do not feel embarrassed or ashamed. This happens to many women. Tell your doctor if you have had: Cancer. Liver problems. Blood clots. GET HELP IF: Your vaginal fluid (discharge) looks different than normal. Your vagina has a bad smell. You have new symptoms. Your symptoms get worse. Your symptoms do not improve with treatment. This information is not intended to replace advice given to you by your health care provider. Make sure you discuss any questions you have with your health care provider. Document Released: 10/01/2008 Document Revised: 05/06/2015 Document Reviewed: 04/06/2015 [facility] Patient Information 2016 [employer]. Hormone Therapy At menopause, your body begins making less estrogen and progesterone hormones. This causes the body to stop having menstrual periods. This is because estrogen and progesterone hormones control your faith ods and menstrual cycle. A lack of estrogen may cause symptoms such as: Hot flushes (or hot flashes). Vaginal dryness. Dry skin. Loss of sex drive. Risk of bone loss (osteoporosis). When this happens, you may choose to take hormone therapy to get back the estrogen lost during menopause. When the hormone estrogen is given alone, it is usually referred to as ET (Estrogen Therapy). Wh en the hormone progestin is combined with estrogen, it is generally called HT ( Hormone Therapy). This was formerly known as hormone replacement therapy (HRT). Your caregiver can help you make a decision on what will be best for you. The decision to use HT seems to change often as new studies are done. Many studies do not agree on the benefits of hormone replacement therapy. LIKELY BENEFITS OF HT INCLUDE PROTECTION FROM: Hot Flushes (also called hot flashes) - A hot flush is a sudden feeling of heat that spreads over the face and body. The skin may shanita like a blush. It is connected with sweats and sleep distur bance. Women going through menopause may have hot flushes a few times a month or several times per day depending on the woman. Osteoporosis (bone loss)- Estrogen helps guard against bone loss. After menopause, a woman's bones slowly lose calcium and become weak and brittle. As a result, bones are more likely to break. Th e hip, wrist, and spine are affected most often. Hormone therapy can help slow bone loss after menopause. Weight bearing exercise and taking calcium with vitamin D also can help prevent bone loss. There are also medications that your caregiver can prescribe that can help prevent osteoporosis. Vaginal Dryness - Loss of estrogen causes changes in the vagina. Its lining may become thin and dry. These changes can cause pain and bleeding during sexual intercourse. Dryness can also lead to infections. This can cause burning and itching. (Vaginal estrogen treatment can help relieve pain, itching, and dryness.) Urinary Tract Infections are more common after menopause because of lack of estrogen. Some women also develop urinary incontinence because of low estrogen levels in the vagina and bladder. Possible other benefits of estrogen include a positive effect on mood and short-term memory in women. RISKS AND COMPLICATIONS Using estrogen alone without progesterone causes the lining of the uterus to grow. This increases the risk of lining of the uterus (endometrial) cancer. Your caregiver should give another hormone called progestin if you have a uterus. Women who take combined (estrogen and progestin) HT appear to have an increased risk of breast cancer. The risk appears to be small, but increases throughout the time that HT is taken. Combined therapy also makes the breast tissue slightly denser which makes it harder to read mammograms (breast X-rays). Combined, estrogen and progesterone therapy can be taken together every day, in which case there may be spotting of blood. HT therapy can be taken cyclically in which case you will have menstrual periods. Cyclically means HT is taken for a set amount of days, then not taken , then this process is repeated. HT may increase the risk of stroke, heart attack, breast cancer and forming blood clots in your leg. Transdermal estrogen (estrogen that is absorbed through the skin with a patch or a cream) may have more positive results with: Cholesterol. Blood pressure. Blood clots. Having the following conditions may indicate you should not have HT: Endometrial cancer. Liver disease. Breast cancer. Heart disease. History of blood clots. Stroke. TREATMENT If you choose to take HT and have a uterus, usually estrogen and progestin are prescribed. Your caregiver will help you decide the best way to take the medications. Possible ways to take estrogen include: Pills. Patches. Gels. Sprays. Vaginal estrogen cream, rings and tablets. It is best to take the lowest dose possible that will help your symptoms and take them for the shortest period of time that you can. Hormone therapy can help relieve some of the problems (symptoms) that affect women at menopause. Before making a decision about HT, talk to your caregiver about what is best for you. Be well informed and comfortable with your decisions. HOME CARE INSTRUCTIONS Follow your caregivers advice when taking the medications. A Pap test is done to screen for cervical cancer. The first Pap test should be done at age 21. Between ages 21 and 29, Pap tests are repeated every 2 years. Beginning at age 30, you are advised to have a Pap test every 3 years as long as your past 3 Pap tests have been normal. Some women have medical problems that increase the chance of getting cervical cancer. Talk to your caregiver about these problems. It is especially important to talk to your caregiver if a new pr oblem develops soon after your last Pap test. In these cases, your caregiver may recommend more frequent screening and Pap tests. The above recommendations are the same for women who have or have not gotten the vaccine for HPV (Human Papillomavirus). If you had a hysterectomy for a problem that was not a cancer or a condition that could lead to cancer, then you no longer need Pap tests. However , even if you no longer need a Pap test, a regula r exam is a good idea to make sure no other problems are starting. If you are between ages 65 and 70, and you have had normal Pap tests going back 10 years, you no longer need Pap tests. However, even if you no longer need a Pap test, a regular exam is a good id ea to make sure no other problems are starting. If you have had past treatment for cervical cancer or a condition that could lead to cancer, you need Pap tests and screening for cancer for at least 20 years after your treatment. If Pap tests have been discontinued, risk factors (such as a new sexual partner) need to be re-assessed to determine if screening should be resumed. Some women may need screenings more often if they are at high risk for cervical cancer. Get mammograms done as per the advice of your caregiver. SEEK IMMEDIATE MEDICAL CARE IF: You develop abnormal vaginal bleeding. You have pain or swelling in your legs, shortness of breath, or chest pain. You develop dizziness or headaches. You have lumps or changes in your breasts or armpits. You have slurred speech. You develop weakness or numbness of your arms or legs. You have pain, burning, or bleeding when urinating. You develop abdominal pain. This information is not intended to replace advice given to you by your health care provider. Make sure you discuss any questions you have with your health care provider. Document Released: 01/12/2004 Document Revised: 07/07/2012 Document Reviewed: 05/02/2011 [employer] Patient Information 2016 [employer]. No follow up information was provided.
--- OUTSIDE RECORDS SUMMARY | 2017-06-03 16:47 | External Medical Summary | Referral Summary ---
:1930 Author [facility] Address [address] [place] [address] [place] [phone] Care Team Providers Name Role Phone Willy Shankar Primary Care Physician Encounter VC Date(s): 03/27/16 - 03/27/16 [facility] [place] [phone] [place] Discharge Diagnosis: Acute bacterial bronchitis Discharge Disposition: 01-Home or Self Care Attending Physician: Willy Shankar DO Admitting Physician: Willy Shankar DO Vital Signs Most recent to oldest [Reference Range]: 1 Temperature Tympanic [36.6-38.1 degC] 36.2 degC *LOW* (03/27/16 3:10 PM) Peripheral Pulse Rate [60-100 bpm] 70 bpm (03/27/16 3:10 PM) Blood Pressure [90-140/60-90 mmHg] 115/57 mmHg (03/27/16 3:10 PM) Problem List Condition Effective Dates Status [...] , # 30 tabs, 11 Refill(s), Pharmacy: [facility] [id number], 1 tabs Oral Daily,x30 days,Instr:take 0.5 tab for 14 days, then increase to 1 tab daily Start Date: 02/28/16 Stop Date: 02/22/17 Status: OrderedBenadryl 25 mg oral tablet See Instructions, 2 tabs Oral 1 hr prior to exam, # 2 tabs, 0 Refill(s), Pharmacy: [id number], 2 tabs Oral 1 hr prior to exam Start Date: 01/19/16 Stop Date: 02/02/16 Status: Orderedcarbidopa-levodopa 25 mg-100 mg oral tablet 2 tabs, Oral, TID, # 180 tabs, 4 Refill(s), Pharmacy: [facility] Start Date: 01/09/16 Stop Date: 06/07/16 [...] Daily, # 90 caps, 3 Refill(s), Pharmacy: [facility], 1 caps Oral Daily Start Date: 07/21/15 Status: OrderedpredniSONE 20 mg oral tablet 20 mg 1 tabs, Oral, Daily, X 5 days, # 5 tabs, 0 Refill(s), Pharmacy: [facility], 1 tabs Oral Daily,x5 days Start Date: 03/27/16 Stop Date: 04/01/16 Status: Orderedsertraline 25 mg oral tablet 25 mg 1 tabs, Oral, Daily, # 90 tabs, 3 Refill(s), Pharmacy: [facility], 1 tabs Oral Daily Start Date: 10/11/15 Status: OrderedTessalon 200 mg oral capsule 200 mg 1 caps, Oral, TID, X 10 days, # 30 caps, 0 Refill(s), Pharmacy: [facility], 1 caps Oral TID,x10 days Start Date: 03/27/16 Stop Date: 04/06/16 Status: Ordered Results No data available for [...] Visit Note Author: Willy Shankar DO Date: 03/27/16 Assessment/Plan Acute bacterial bronchitis 1. History and clinical findings concerning for acute bacterial bronchitis versus early pneumonia. 2. Zithromax taken as directed for 5 days 3. Prednisone 20 mg daily for 5 days 4. Tessalon Perles, 200 mg every 8 hours as needed for coughing 5. Follow-up if worsening presentation Ordered: Office Visit Level 4 Est [address]8080
--- OUTSIDE RECORDS SUMMARY | 2017-06-03 16:47 | External Medical Summary | Referral Summary ---
:1930 Author [facility] Address [address] [place] [address] [place] [phone] Care Team Providers Name Role Phone Willy Shankar Primary Care Physician Encounter VC Date(s): 06/14/15 - 06/14/15 [facility] [place] [phone] Discharge Diagnosis: Dementia with parkinsonism Discharge Diagnosis: Major depression Discharge Diagnosis: Greater trochanteric bursitis of right hip Discharge Disposition: 01-Home or Self Care Attending Physician: Willy Shankar DO Admitting Physician: Willy Shankar DO Vital Signs Most recent to oldest [Reference Range]: 1 Peripheral Pulse Rate [60-100 bpm] 65 bpm (06/14/15 9:33 AM) Blood Pressure [90-140/60-90 mmHg] 90/50 mmHg (06/14/15 9:33 AM) SpO2 98 % (06/14/15 9:33 AM) Problem List Condition Effective Dates Status [...] QID, # 270 tabs, 2 Refill(s), Pharmacy: [facility] Start Date: 03/31/15 Status: Orderedomeprazole 20 mg oral delayed release capsule 1 caps, Oral, Daily, # 90 caps, 3 Refill(s), Pharmacy: [facility], 1 caps Oral Daily Start Date: 08/20/14 Status: OrderedProbiotic Formula oral capsule caps, Oral, Daily, 0 Refill(s) Start Date: 06/24/14 Status: Orderedpropranolol 60 mg oral tablet 1 tabs, Oral, TID, # 270 tabs, 3 Refill(s), Pharmacy: [facility], 1 tabs OralTID Start Date: 08/20/14 Status: Orderedsertraline 25 mg oral tablet 1 tabs, Oral, Daily, # 90 tabs, 3 Refill(s), Pharmacy: [facility], 1 tabs Oral Daily Start [...] Visit Note Author: Willy Shankar DO Date: 06/14/15 Assessment/Plan Dementia with parkinsonism 1. Continue with recommendations as per Dr. Fontanez. 2. Continue with carbidopa levodopa. 3. We plan on rechecking liver function tests and renal function at next office visit. 4. Follow-up in 60 days for reevaluation. Ordered: Office Visit Level 4 Est 18978 Greater trochanteric bursitis of right hip Clinical finding consistent with right trochanteric bursitis. Injection offered to which the patient and her family agreed. Procedure: Trochanteric bursitis injection Indication: Symptomatic Location: Right greater trochanteric bursa Medication: 80 mg of Kenalog, 2 mL of Marcaine, 2 mL of light and without epinephrine Description: Following informed consent from the family members, patient was laid in the lateral recumbent position. Landmarks for greater trochanteric bursa injection identified and marked. The area was clean sed with chlorhexidine. Sterile drape was applied. Injection was done using sterile technique with combined solution of Kenalog, Marcaine and one percent lidocaine without epinephrine. Patient tolerated treatment well, dry dressing was applied and wound care instructions provided. Ordered: Office Visit Level 4 Est 04752 Major depression 1. Continue with sertraline as previous. Ordered: Office Visit Level 4 Est 90627 Right hip pain, Right hip pain 1. Imaging of the right hip was negative for any significant arthritic changes. 2. I suspect her hip pain is secondary to trochanteric bursitis. Injection given as above. Ordered: Office Visit Level 4 Est 62700
--- OUTSIDE RECORDS SUMMARY | 2017-06-03 16:47 | External Medical Summary | Referral Summary ---
:1930 Author [facility] Address [address] [place] [address] [place] [phone] Care Team Providers Name Role Phone Willy Shankar Primary Care Physician Encounter VC Date(s): 07/27/15 - 07/27/15 [facility] [place] [phone] [place] Discharge Diagnosis: Hypotension Discharge Diagnosis: Parkinson's disease dementia Discharge Disposition: 01-Home or Self Care Attending Physician: Willy Shankar DO Admitting Physician: Willy Shankar DO Vital Signs Most recent to oldest [Reference Range]: 1 Temperature Tympanic [36.6-38.1 degC] 36.6 degC (07/27/15 1:47 PM) Peripheral Pulse Rate [60-100 bpm] 67 bpm (07/27/15 1:47 PM) Blood Pressure [90-140/60-90 mmHg] 90/60 mmHg (07/27/15 1:47 PM) SpO2 96 % (07/27/15 1:47 PM) Problem List Condition Effective Dates Status [...] QID, # 270 tabs, 2 Refill(s), Pharmacy: [facility] Start Date: 03/31/15 Status: Orderedomeprazole 20 mg oral delayed release capsule 20 mg 1 caps, Oral, Daily, # 90 caps, 3 Refill(s), Pharmacy: [facility], 1 caps Oral Daily Start Date: 07/21/15 Status: OrderedProbiotic Formula oral capsule caps, Oral, Daily, 0 Refill(s) Start Date: 06/24/14 Status: Orderedpropranolol 60 mg oral tablet 30 mg 0.5 tabs, Oral, BID, # 30 tabs, 0 Refill(s), Pharmacy: [facility], 0.5 tabs Oral BID,x30 days Start Date: 07/27/15 Stop Date: 08/26/15 Status: Orderedsertraline 25 mg oral tablet 1 tabs, Oral, Daily, # 90 tabs, 3 Refill(s), Pharmacy: [facility], 1 tabs Oral Daily Start Date: 08/20/14 Status: Ordered Results Hematology Most recent to oldest [Reference Range]: 1 WBC [5.0-10.0 10*3/uL] 6.7 10*3/uL (07/27/15 2:34 PM) RBC [3.70-5.20] 3.95 (07/27/15 2:34 PM) Hgb [12.0-16.0 gm/dL] 12.5 gm/dL (07/27/15 2:34 PM) Hct [37.0-47.0 %] 37.9 % (07/27/15 2:34 PM) MCV [80.0-96.0 fL] 95.9 fL (07/27/15 2:34 PM) MCH [26.0-34.0 pg] 31.6 pg (07/27/15 2:34 PM) MCHC [32.0-36.0 gm/dL] 33.0 gm/dL (07/27/15 2:34 PM) RDW [0.0-14.5 %] 14.9 % *HI* (07/27/15 2:34 PM) Platelet [150-400 10*3/uL] 237 10*3/uL (07/27/15 2:34 PM) MPV [8.8-14.8 fL] 10.4 fL (07/27/15 2:34 PM) Neutrophils [50-70 %] 65 % (07/27/15 2:34 PM) Lymphocytes [20-40 %] 25 % (07/27/15 2:34 PM) Monocytes [4-8 %] 8 % (07/27/15 2:34 PM) Eosinophils [0-6 %] 1 % (07/27/15 2:34 PM) Basophils [0-2 %] 0 % (07/27/15 2:34 PM) Neutro Absolute [2.50-7.00 10*3] 4.37 10*3 (07/27/15 2:34 PM) Lymph Absolute [1.00-4.00 10*3] 1.64 10*3 (07/27/15 2:34 PM) [place] Absolute [0.20-0.80 10*3] 0.56 10*3 (07/27/15 2:34 PM) Eos Absolute [0.00-0.60 10*3] 0.08 10*3 (07/27/15 2:34 PM) Baso Absolute [0.00-0.30] 0.02 (07/27/15 2:34 PM) Chemistry Most recent to oldest [Reference Range]: 1 Sodium Lvl [135-144 mEq/L] 141 mEq/L (07/27/15 2:34 PM) Potassium Lvl [3.5-5.2 mEq/L] 3.9 mEq/L (07/27/15 2:34 PM) Chloride [99-111 mEq/L] 108 mEq/L (07/27/15 2:34 PM) CO2 [22-31 mEq/L] 24 mEq/L (07/27/15 2:34 PM) AGAP [3-20] 9 (07/27/15 2:34 PM) BUN [10-20 mg/dL] 29 mg/dL *HI* (07/27/15 2:34 PM) Glucose Lvl [70-99 mg/dL] 102 mg/dL *HI* (07/27/15 2:34 PM) Creatinine Lvl [0.57-1.11 mg/dL] 0.98 mg/dL (07/27/15 2:34 PM) eGFR [>60 mL/min] 54 mL/min 1 *ABN* (07/27/15 2:34 PM) Calcium Lvl [8.9-10.5 mg/dL] 9.2 mg/dL (07/27/15 2:34 PM) Albumin Lvl [3.4-4.8 gm/dL] 3.9 gm/dL (07/27/15 2:34 PM) Total Protein [6.2-8.1 gm/dL] 6.2 gm/dL (07/27/15 2:34 PM) Globulin [1.8-4.0 gm/dL] 2.3 gm/dL (07/27/15 2:34 PM) ALT [0-55 U/L] 6 U/L (07/27/15 2:34 PM) AST [5-34 U/L] 13 U/L (07/27/15 2:34 PM) Alk Phos [40-150 U/L] 80 U/L (07/27/15 2:34 PM) Bili Total [0.2-1.2 mg/dL] 0.4 mg/dL (07/27/15 2:34 PM) 1Result Comment: Multiply eGFR results by 1.21 for race.Urinalysis Most recent to oldest [Reference Range]: 1 UA Color Yellow (07/27/15 2:30 PM) UA Appear Cloudy *ABN* (07/27/15 2:30 PM) UA pH [5.0-8.0] 5.5 (07/27/15 2:30 PM) UA Leuk Est [Negative] Negative (07/27/15 2:30 PM) UA Nitrite [Negative] Negative (07/27/15 2:30 PM) UA Protein [Negative] Negative (07/27/15 2:30 PM) UA Glucose [Negative] Negative (07/27/15 2:30 PM) UA Ketones [Negative] Negative (07/27/15 2:30 PM) UA Urobilinogen [<=1.0 mg/dL] 0.2 mg/dL (07/27/15 2:30 PM) UA Bili [Negative] Negative (07/27/15 2:30 PM) UA Blood [Negative] Negative (07/27/15 2:30 PM) UA Spec Grav [1.003-1.030] 1.025 (07/27/15 2:30 PM) Type Catheter (07/27/15 2:30 PM) Immunizations Vaccine Date Refusal Reason influenza virus [...] smoker Assessment and Plan Extracted from: Title: Generalized weakness Author: Willy Shankar DO Date: 07/27/15 Assessment/Plan Generalized weakness 1. Her lungs sound clear. We will get a chest x-ray to rule out occult pneumonia. 2. We will get a UA to rule out urinary tract infection. 3. We will get CBC to rule out anemia. 4. Asymmetric metabolic profile ordered to rule out electrolyte imbalance. 5. CMP ordered to evaluate her liver function. 6. Once we get results we will discuss with caregiver. Ordered: Basic Metabolic Panel CBC w/ Differential Comprehensive Metabolic Panel Office Visit Level 4 Est 17447 Urinalysis with Culture if Indicated XR Chest 2 Views Hypotension, Hypotension due to drugs 1. She is hypotensive, review of her medications indicate that she is on propranolol at 60 mg 3 times a day. 2. We will decrease the propranolol to 30 mg twice a day. 3. Follow-up in a week for reevaluation. Ordered: Office Visit Level 4 Est 54231 Parkinson's disease, Parkinson's disease dementia 1. Continue with current dose of carbidopa levodopa. 2. Continue with current dose of sertraline. Ordered: Comprehensive Metabolic Panel
[2017-06-03] MEDS ORDERED: CEFTRIAXONE (ER USE ONLY) 1 GM in NS 100 ML IV ONE (16:48)
--- OUTSIDE RECORDS SUMMARY | 2017-06-03 16:48 | External Medical Summary | Referral Summary ---
:1930 Author [facility] Address [address] [place] [address] [place] [phone] Care Team Providers Name Role Phone Willy Shankar Primary Care Physician Encounter VC Date(s): 01/10/15 - 01/10/15 [facility] [address] [place] [phone]- Discharge Diagnosis: Immunization due Discharge Diagnosis: Medicare annual wellness visit, subsequent Discharge Disposition: 01-Home or Self Care Attending Physician: Latoya Castorena DO Admitting Physician: Latoya Castorena DO Vital Signs Most recent to oldest [Reference Range]: 1 Temperature Tympanic [36.6-38.1 degC] 36.7 degC (01/10/15 12:57 PM) Peripheral Pulse Rate [60-100 bpm] 62 bpm (01/10/15 12:57 PM) Respiratory Rate [14-20 br/min] 16 br/min (01/10/15 12:57 PM) Blood Pressure [90-140/60-90 mmHg] 128/78 mmHg (01/10/15 12:57 PM) SpO2 96 % (01/10/15 12:57 PM) Problem List Condition Effective Dates Status [...] QID, # 270 tabs, 2 Refill(s), Pharmacy: [facility] Start Date: 03/31/15 Status: Orderedomeprazole 20 mg oral delayed release capsule 20 mg 1 caps, Oral, Daily, # 90 caps, 3 Refill(s), Pharmacy: Pharmacy, 1 caps Oral Daily Start Date: 07/21/15 Status: OrderedProbiotic Formula oral capsule caps, Oral, Daily, 0 Refill(s) Start Date: 06/24/14 Status: Orderedpropranolol 60 mg oral tablet 1 tabs, Oral, TID, # 270 tabs, 3 Refill(s), Pharmacy: Pharmacy, 1 tabs OralTID Start Date: 08/20/14 [...] Extracted from: Title: Ambulatory Patient Education Author: Latoya Castorena DO Date: 01/10/15 Family Medicine Health Maintenance, Female A healthy lifestyle and preventative care can promote health and wellness. Maintain regular health, dental, and eye exams. Eat a healthy diet. Foods like vegetables, fruits, whole grains, low-fat dairy products, and lean protein foods contain the nutrients you need without too many calories. Decrease your intake of devin ds high in solid fats, added sugars, and salt. Get information about a proper diet from your caregiver, if necessary. Regular physical exercise is one of the most important things you can do for your health. Most adults should get at least 150 minutes of moderate- intensity exercise (any activity that increases you r heart rate and causes you to sweat) each week. In addition, most adults need muscle-strengthening exercises on 2 or more days a week. Maintain a healthy weight. The body mass index (BMI) is a screening tool to identify possible weight problems. It provides an estimate of body fat based on height and weight. Your caregiver can hel p determine your BMI, and can help you achieve or maintain a healthy weight. For adults 20 years and older: A BMI below 18.5 is considered underweight. A BMI of 18.5 to 24.9 is normal. A BMI of 25 to 29.9 is considered overweight. A BMI of 30 and above is considered obese. Maintain normal blood lipids and cholesterol by exercising and minimizing your intake of saturated fat. Eat a balanced diet with plenty of fruits and vegetables. Blood tests for lipids and choleste rol should begin at age 20 and be repeated every 5 years. If your lipid or cholesterol levels are high, you are over 50, or you are a high risk for heart disease, you may need your cholesterol levels ch ecked more frequently.Ongoing high lipid and cholesterol levels should be treated with medicines if diet and exercise are not effective. If you smoke, find out from your caregiver how to quit. If you do not use tobacco, do not start. Lung cancer screening is recommended for adults aged 5580 years who are at high risk for developing lung cancer because of a history of smoking. Yearly low-dose computed tomography (CT) is recom mended for people who have at least a [id number] history of smoking and are a current smoker or have quit within the past 15 years. A pack year of smoking is smoking an average of 1 pack of cigarettes a day for 1 year (for example: 1 pack a day for 30 years or 2 packs a day for 15 years). Yearly screening should continue until the smoker has stopped smoking for at least 15 years. Yearly screening sh ould also be stopped for people who develop a health problem that would prevent them from having lung cancer treatment. If you are , do not drink alcohol. If you are , be very cautious about drinking alcohol. If you are not and choose to drink alcohol, do not exceed 1 drink per day. One drink is considered to be 12 ounces (355 mL) of beer, 5 ounces (148 mL) of wine, or 1.5 ounces (44 mL) of liquor. Avoid use of street drugs. Do not share needles with anyone. Ask for help if you need support or instructions about stopping the use of drugs. High blood pressure causes heart disease and increases the risk of stroke. Blood pressure should be checked at least every 1 to 2 years. Ongoing high blood pressure should be treated with medicines , if weight loss and exercise are not effective. If you are 55 to 79 years old, ask your caregiver if you should take aspirin to prevent strokes. Diabetes screening involves taking a blood sample to check your fasting blood sugar level. This should be done once every 3 years, after age 45, if you are within normal weight and without risk fac tors for diabetes. Testing should be considered at a younger age or be carried out more frequently if you are overweight and have at least 1 risk factor for diabetes. Breast cancer screening is essential preventative care for women. You should practice "breast self-awareness." This means understanding the normal appearance and feel of your breasts and may includ e breast self-examination. Any changes detected, no matter how small, should be reported to a caregiver. Women in their 20s and 30s should have a clinical breast exam (CBE) by a caregiver as part of a r [facility] health exam every 1 to 3 years. After age 40, women should have a CBE every year. Starting at age 40, women should consider having a mammogram ( breast X-ray) every year. Women who have a family h istory of breast cancer should talk to their caregiver about genetic screening. Women at a high risk of breast cancer should talk to their caregiver about having an MRI and a mammogram every year. Breast cancer gene (BRCA)-related cancer risk assessment is recommended for women who have family members with BRCA-related cancers. BRCA-related cancers include breast, ovarian, tubal, and periton eal cancers. Having family members with these cancers may be associated with an increased risk for harmful changes (mutations) in the breast cancer genes BRCA1 and BRCA2. Results of the assessment will determine the need for genetic counseling and BRCA1 and BRCA2 testing. The Pap test is a screening test for cervical cancer. Women should have a Pap test starting at age 21. Between ages 21 and 29, Pap tests should be repeated every 2 years. Beginning at age 30, you s hould have a Pap test every 3 years as long as the past 3 Pap tests have been normal. If you had a hysterectomy for a problem that was not cancer or a condition that could lead to cancer, then you no lo nger need Pap tests. If you are between ages 65 and 70, and you have had normal Pap tests going back 10 years, you no longer need Pap tests. If you have had past treatment for cervical cancer or a condi tion that could lead to cancer, you need Pap tests and screening for cancer for at least 20 years after your treatment. If Pap tests have been discontinued , risk factors (such as a new sexual partner) n eed to be reassessed to determine if screening should be resumed. Some women have medical problems that increase the chance of getting cervical cancer. In these cases, your caregiver may recommend more frequent screening and Pap tests. The human papillomavirus (HPV) test is an additional test that may be used for cervical cancer screening. The HPV test looks for the virus that can cause the cell changes on the cervix. The cells c ollected during the Pap test can be tested for HPV. The HPV test could be used to screen women aged 30 years and older, and should be used in women of any age who have unclear Pap test results. After th e age of 30, women should have HPV testing at the same frequency as a Pap test. Colorectal cancer can be detected and often prevented. Most routine colorectal cancer screening begins at the age of 50 and continues through age 75. However, your caregiver may recommend screening at an earlier age if you have risk factors for colon cancer. On a yearly basis , your caregiver may provide home test kits to check for hidden blood in the stool. Use of a small camera at the end of a t ube, to directly examine the colon (sigmoidoscopy or colonoscopy), can detect the earliest forms of colorectal cancer. Talk to your caregiver about this at age 50, when routine screening begins. Direct examination of the colon should be repeated every 5 to 10 years through age 75 , unless early forms of pre-cancerous polyps or small growths are found. Hepatitis C blood testing is recommended for all people born from 1945 through 1965 and any individual with known risks for hepatitis C. Practice safe sex. Use condoms and avoid high-risk sexual practices to reduce the spread of sexually transmitted infections (STIs). Sexually active women aged 25 and younger should be checked for C hlamydia, which is a common sexually transmitted infection. Older women with new or multiple partners should also be tested for Chlamydia. Testing for other STIs is recommended if you are sexually active and at increased risk. Osteoporosis is a disease in which the bones lose minerals and strength with aging. This can result in serious bone fractures. The risk of osteoporosis can be identified using a bone density scan. Women ages 65 and over and women at risk for fractures or osteoporosis should discuss screening with their caregivers. Ask your caregiver whether you should be taking a calcium supplement or vitamin D to reduce the rate of osteoporosis. Menopause can be associated with physical symptoms and risks. Hormone replacement therapy is available to decrease symptoms and risks. You should talk to your caregiver about whether hormone replacement therapy is right for you. Use sunscreen. Apply sunscreen liberally and repeatedly throughout the day. You should seek shade when your shadow is shorter than you. Protect yourself by wearing long sleeves, pants, a wide-brimm ed hat, and sunglasses year round, whenever you are outdoors. Notify your caregiver of new moles or changes in moles, especially if there is a change in shape or color. Also notify your caregiver if a mole is larger than the size of a pencil eraser. Stay current with your immunizations. Document Released: 10/29/2011 Document Revised: 08/10/2013 Document Reviewed: 03/17/2014 Exit[employer] Patient Information 2015 [employer]. This information is not intended to replace advice given to you by your health care provider. Make sure you discuss any questions you have with your health care provider. No follow up information was provided. Extracted from: Title: Office Visit Note Author: Latoya Castorena DO Date: 01/10/15 Assessment/Plan Immunization due pna shot today. Ordered: Periodic Comp Preventive Med 65+ years Est 90741 Medicare annual wellness visit, subsequent Return to clinic 1 year. Ordered: Periodic Comp Preventive Med 65+ years Est 30315 Orders: conjugated estrogens topical, 1 g, Vaginal, qPM, # 42 g, 2 Refill(s) , Pharmacy: Pharmacy
--- OUTSIDE RECORDS SUMMARY | 2017-06-03 16:48 | External Medical Summary | Referral Summary ---
:1930 Author Organization [facility], [facility] Address [address] [place] [address] [place] [phone] Care Team Providers Name Role Phone Willy Shankar Primary Care Physician Encounter VC Date(s): 06/16/16 - 06/16/16 [facility] [place], [address] [place] [phone]- [phone] Discharge Diagnosis: Acute bacterial bronchitis Discharge Disposition: 01-Home or Self Care Attending Physician: Willy Shankar DO Admitting Physician: Willy Shankar DO Vital Signs Most recent to oldest [Reference Range]: 1 Temperature Tympanic [36.6-38.1 degC] 36.5 degC *LOW* (06/16/16 10:54 AM) Peripheral Pulse Rate [60-100 bpm] 86 bpm (06/16/16 10:54 AM) Blood Pressure [90-140/60-90 mmHg] 104/62 mmHg (06/16/16 10:54 AM) SpO2 95 % (06/16/16 10:54 AM) Problem List Condition Effective Dates Status Health Status Informant Actinic keratosis(Confirmed) Active Allergic rhinitis(Confirmed) Active Alzheimer's disease Active (disorder)(Confirmed) [...] exam, # 2 tabs, 0 Refill(s), Pharmacy: [id number], 2 tabs Oral 1 hr prior to exam Start Date: 01/19/16 Stop Date: 02/02/16 Status: Orderedcarbidopa-levodopa 25 mg-100 mg oral tablet 2.5 tabs, Oral, TID, # 225 tabs, 7 Refill(s), Pharmacy: [id number] Start Date: 05/22/16 Stop Date: 01/17/17 Status: Orderedcetirizine Daily, 0 Refill(s) Start Date: 12/26/15 Status: OrderedHospital Bed (DME) DME Item Hospital bed, See Instructions, # 1 Each, 0 Refill(s), Supply Start Date: 12/29/15 Status: Orderednystatin 100,000 units/g topical cream 1 idalia, Topical, BID, to affected area, # 15 g, 0 Refill(s) Start Date: 09/16/15 Status: Orderedomeprazole 20 mg oral delayed release capsule See Instructions, TAKE 1 CAPSULE DAILY, # 90 caps, 3 Refill(s), [facility]: [facility] Start Date: 05/25/16 Status: OrderedOrapred 15 mg/5 mL oral liquid 45 mg 15 mL, Oral, Daily, 15 mls daily for 5 days, # 75 mL, 0 Refill(s), Pharmacy: [facility] [id number], 15 mls daily for 5 days, 15 mL Oral Daily, x5 days,Instr:15 mls daily for 5 days Start Date: 06/16/16 Stop Date: 06/21/16 Status: Orderedsertraline 25 mg oral tablet 25 mg 1 tabs, Oral, Daily, # 90 tabs, 3 Refill(s), Pharmacy: [facility], 1 tabs Oral Daily Start Date: 10/11/15 Status: OrderedZithromax 200 mg/5 mL oral liquid 260 mg 6.5 mL, Oral, Daily, 13 mls today, then 6.5 mls daily for 4 more days., X 6 days, # 39 mL, 0 Refill(s), Pharmacy: [facility] [id number], 13 mls on day one, then 6.5mls daily for 4 more days., 6.5 mL Oral Daily,x6 days,Instr:13 mls today, t... Start Date: 06/16/16 Stop Date: 06/22/16 Status: Ordered Results No data available for [...] Procedures Procedure Date Related Diagnosis Body Site Excision, other benign lesion including margins, 06/16/16 except skin tag (unless listed elsewhere), face, ears, eyelids, nose, lips, mucous membrane; excised diameter 0.6 to 1.0 cm Procedure - Right Carpal Ganglionectomy 11/03/09 Basal cell carcinoma Removal1 2009 Basal cell carcinoma Removal2 2006 Appendectomy Cataract Left 12nd removal L Eye.21st one chin Social History Social History Type Response Smoking Status Never smoker Assessment and Plan Extracted from: Title: Office Visit Note Author: Wilyl Shankar DO Date: 06/16/16 Assessment/Plan Actinic keratosis 1. Recommend shave excision to which the daughter who is the DPOA agreed. 2. Using sterile technique, the lesion was shaved at the base and sent in to pathology for review. Dry dressing was applied and wound care instruction provided. Ordered: Office Visit Level 4 Est 71705 Acute bacterial bronchitis 1. Zithromax, take as directed for 5 days. 2. Orapred daily for 5 days. 3. Continue with supportive care. 4. Follow up in my office in the next week if not improving. Ordered: azithromycin, 260 mg 6.5 mL, Oral, Daily, 13 mls today, then 6.5 mls daily for 4 more days., X 6 days, # 39 mL, 0 Refill(s), Pharmacy: [facility] [id number], 13 mls on day one, then 6.5mls cristina y for 4 more days., 6.5 mL Oral Daily,x6 days,Instr:13 mls today, t... prednisoLONE, 45 mg 15 mL, Oral, Daily, 15 mls daily for 5 days, # 75 mL, 0 Refill(s), Pharmacy: [facility] [id number], 15 mls daily for 5 days, 15 mL Oral Daily,x5 days,Instr:15 mls daily for 5 days Office Visit Level 4 Est 80388
[2017-06-03] MEDS: SALINE FLUSH 10ml SYRINGE IVF PRN (17:28)
[2017-06-03] MEDS ORDERED: VANCOMYCIN - PHARMACY CONSULT MC ONE (19:14)
--- NOTE | 2017-06-03 19:54 | History & Physical Report ---
History of Present Illness Date: 06/04/17 Chief complaint: Fever, cough, low o2 sat HPI: Tammi is an 87 year-old who lives at home w/ caregiver/family support w/ h/o Parkinson's and non-verbal per report who presents today to ED w/ cc of cough, fever and SOA and found to have low O2 sat at home today. She was recently diagnosed clinically as having Influenza A approximately 10 days ago by her PCP (had fevers, cough, congestion at the time w/ exposure to close contact w/ documented influenza A) but patient was outside the window for treatment w/ Tamiflu but was started on Zpak. She seemed to initially improve somewhat but did not return to baseline per family's report and then the current symptoms started a few days ago. She has also had some intermittent "moaning" and decreased appetite and po intake w/ concentrated urine. No reported BATES, chest pain, change in bowel/bladder function. History obtained from ED physician, notes, family. In ER has CXR showing RLL pneumonia and right pleural effusion. Patient started on Rocephin and after d/w ER physician decision made to add Vancomycin IV given recent h/o influenza and right pleural effusion. WBC = 9.8, procalcitonin = 0.65, Lactate = 1.6 and VBG pending. Patient's BNP somewhat elevated as well however no mention of h/o CHF. Patient to be admitted to the Hospitalist service for further evaluation and management. Review of Systems All systems PM: 10-point ROS was reviewed, no additional remarkable complaints except Past Medical History Patient Stated Medical History Dementia Yes Parkinson's Disease Yes: "PARKINSISMS" Bronchitis Yes: HX OF Hx Incontinence Yes Anemia Yes Osteoarthritis Yes Shingles Yes Depression Yes: SERTRALINE Family History Updates: Nothing to update in regards to Family History - Social History Smoking status: Never smoker Household members: family, caregiver Medications Home Medications Medication Instructions Recorded Confirmed Type Acetaminophen [Acetaminophen Extra 500 mg PO Q4H PRN 06/03/17 06/03/17 History Strength] Carbidopa/Levodopa 1.5 tab PO QID 06/03/17 06/03/17 History [Carbidopa-Levodopa 25-100 Tab] Omeprazole [Prilosec] 20 mg PO HS 06/03/17 06/03/17 History Rasagiline Mesylate 0.5 mg PO HS 06/03/17 06/03/17 History Sertraline [Zoloft] 50 mg PO HS 06/03/17 06/03/17 History guaiFENesin [Guaifenesin] 100 mg PO Q4H PRN 06/03/17 06/03/17 History Allergies Allergy/AdvReac Type Severity Reaction Status Date / Time Iodinated Contrast- Oral and Allergy Unknown Verified 06/03/17 16:28 IV Dye Exam Vital Signs: Temperature 98.2 F 06/03/17 19:05 Pulse Rate 89 06/03/17 19:05 Respiratory Rate 32 H 06/03/17 19:05 Blood Pressure 152/77 H 06/03/17 19:05 Pulse Oximetry 92 06/03/17 19:05 Telemetry Rhythm: Sinus Rhythm Height/Weight/BMI: Height 1.65 m Weight 74.843 kg - Constitutional Present: no acute distress, well nourished, well developed Comments: Non-verbal - Routine HEENT Exam Head: Present: normocephalic, atraumatic Eye: Present: EOMI, PERRL ENT: Present: mucous membranes dry - Routine Neck Exam Present: supple. Absent: JVD - Routine Respiratory Exam Absent: accessory muscle use, dyspnea, prolonged expiratory phase Comments: Rales and diminished breath sounds right lower lobe - Routine Cardiovascular Exam Present: RRR - Routine Abdominal Exam Present: soft, normoactive bowel sounds, non distended. Absent: tenderness - Routine Extremities Exam Absent: cyanosis, clubbing, edema - Routine Skin Exam Present: intact, dry - Routine Neurological Exam Present: alert Results - Labs CBC & Chem 7: 06/04/17 03:59 06/04/17 03:59 Microbiology Results: Microbiology 06/03/17 17:20 Peripheral/Iv Start Blood Culture - Preliminary Culture Initiated - Results Pending 06/03/17 17:25 Peripheral/Iv Start Blood Culture - Preliminary Culture Initiated - Results Pending - ABG Interpretation ABG results: 06/03/17 19:13 VBG pH 7.550 H VBG pCO2 30 L VBG pO2 86 H VBG HCO3 26 VBG Total CO2 27.1 VBG O2 Saturation 98.0 VBG Base Excess 4.3 H Assessment and Plan Assessment and Plan: A/ 1) Acute RLL w/ pleural effusion s/p recent ANTHONY clinically diagnosed as Influenza - likely Influenza A (had family member w/ Influenza A and exhibited influenza-like symptoms) 2) Acute Hypoxia r/t to #1 - no prior home O2 requirement 3) Parkinson's 4) GERD 5) Chronic Anemia 6) Acute thrombocytosis - likely acute phase reactant 7) Acute Dehydration 8) Depression P/ Admit to Hospitalist service Rocephin 1g IV q 24 hours Vancomycin 1g IV q 24 hours - Pharmacy to dose Blood cultures pending Sputum culture - need to collect IVFs that of NS to run at 75 cc/hour - may consider change to LR in AM pending lab results Clear liquid diet - will d/w family if on special diet - patient on regular diet at home - will advance Home meds restarted SCDs RT consult Oxygen therpay - titrate to keep sats > 90% Consider Pulmonology consult - Dr. Magallon Albuterol neb q 4 hours prn Labs in AM - CBC, Renal panel, mg level and procalcitonin I have discussed the plan of care with the patient and patient's family and the family verbalized understanding DVT Prophylaxis: SCD's GI Prophylaxis: other (PPI) Resuscitation Status: Do Not Resuscitate - Physician Narrative Physician: Debbie Nolasco MD Narrative: Date: 06/04/17 Time: 1600 See supplemental note dictated 06/04/17 Hospital Course Summary Disclaimer: The visit summary below is not to be considered part of the above Progress Note.
[2017-06-03] MEDS ORDERED: ONDANSETRON 4 MG/2 ML INJECTION IVP PRN (20:18)
[2017-06-03] MEDS: NS 1,000 ML IV SCH (21:39)
[2017-06-03] MEDS ORDERED: ALBUTEROL 2.5mg/3ml (0.083%) NEB AEROSOL PRN (21:54)
[2017-06-03] MEDS: RASAGILINE 0.5 MG TABLET PO SCH (22:16)
[2017-06-03] MEDS: SERTRALINE 50 MG TABLET PO SCH (22:17)
[2017-06-03] MEDS: OMEPRAZOLE 20 MG CAPSULE PO SCH (22:17)
--- NOTE | 2017-06-04 08:16 | XRay Report ---
INDICATION: cough hypoxia crackles rule out pneumonia PROCEDURE: CHEST 2-VIEWS UPRIGHT (PA & LAT) Encounter: Initial COMPARISON: September 15, 2015 FINDINGS: Hazy airspace opacity in the left lower lobe. Right lung is stable and grossly clear. No pleural effusion or pneumothorax. Heart size and mediastinal contours are stable. Pulmonary vascularity is normal. Hiatal hernia. Impression: Left lower lobe atelectasis, pneumonia or aspiration. .
[2017-06-04] MEDS ORDERED: INFLUENZA VAC High Dose 2017-18 (Fluzone HD*) (>=65yo) 0.5ml IM ONE (09:34)
[2017-06-04] MEDS ORDERED: INFLUENZA VAC. INJ. ADMIN CHARGE INJ ONE (09:43)
--- NOTE | 2017-06-04 10:57 | Pharmacy Consult-Antibiotics ---
Pharmacy Consult-Vancomycin - Laboratory Information WBC 9.1 T/MM3 (4.5-11.0) 06/04/17 03:59 BUN 31.0 MG/DL (7-17) H 06/04/17 03:59 Creatinine 0.8 MG/DL (0.7-1.2) 06/04/17 03:59 Procalcitonin 0.53 NG/ML 06/04/17 03:59 - Consult Information Vancomycin consult noted for Ms Aguilar, who is 87 yo and has CAP. She has good renal function. A dose of vancomycin 1 gram was given last night. Will begin vancomycin 1 gram IV q18h. Will continue to monitor. Thank you.
[2017-06-04] MEDS: NS 1,000 ML IV SCH (11:46)
--- NOTE | 2017-06-04 16:11 | History & Physical Report ---
History of Present Illness Date: 06/04/17 Chief complaint: hypoxia, shortness of breath HPI: Mrs. Aguilar is an 87 year-old who lives at home with family support who presented today to ED yesterday evening with cough, low-grade fever, dyspnea, and oxygen saturations in the 80s on room air. She was recently diagnosed clinically as having Influenza A approximately 10 days ago by her PCP (had fevers, cough, congestion at the time after exposure to close contact with known influenza A) but patient was outside the window for treatment with Tamiflu but was started on Zpak. She seemed to initially improve somewhat but did not return to baseline per family's report. Over the past 4-5 days she's had gradually increasing dyspnea with persistent nonproductive cough. For several days her oxygen saturation has intermittently been 86-88% and she's had low-grade fever typically no higher than 100. She has also had some intermittent "moaning" and decreased appetite and po intake with concentrated urine. Due to persistent hypoxia she was taken to the emergency room by family members for further evaluation. There chest x-ray demonstrated left lower lobe pneumonia and IV antibiotics were initiated. BNP was elevated at 3470 and lactic acid 1.6. 4 L supplemental oxygen was necessary to maintain saturation above 90% during ER evaluation. Patient started on Rocephin and subsequently decision made to add Vancomycin IV given recent recent influenza. The patient does not provide any history which is baseline per family members who are at the bedside when evaluated. Review of Systems ROS unobtainable: due to mental status (Alzheimer's disease/nonverbal at baseline) All systems PM: 10-point ROS was reviewed, no additional remarkable complaints except (only additional symptoms described by patient family are recorded in history of present illness) Past Medical History Patient Stated Medical History Alzheimer's dementia Parkinson's disease History basal cell carcinomas of the skin Essential tremor Irritable bowel syndrome Hiatal hernia with GERD DJD Depression History shingles Anemia Surgical History: Appendectomy, basal cell carcinoma resections 2, cataract surgery Family History Updates: Mother and a brother had diabetes. One son is of esophageal cancer. Sister with Parkinson's disease. Brother with atrial fibrillation. Father and one sister had coronary artery disease. - Social History Smoking status: Never smoker Substance use type: does not use Alcohol intake frequency: does not drink Current residence: Apartment/Private Home (with /daughter) Social history: PCP-Dr. Willy Shankar CODE STATUS-DO NOT RESUSCITATE Alternate decision makers-patient's and daughter Medications Home Medications Medication Instructions Recorded Confirmed Type Acetaminophen [Acetaminophen Extra 500 mg PO Q4H PRN 06/03/17 06/03/17 History Strength] Carbidopa/Levodopa 1.5 tab PO QID 06/03/17 06/03/17 History [Carbidopa-Levodopa 25-100 Tab] Omeprazole [Prilosec] 20 mg PO HS 06/03/17 06/03/17 History Rasagiline Mesylate 0.5 mg PO HS 06/03/17 06/03/17 History Sertraline [Zoloft] 50 mg PO HS 06/03/17 06/03/17 History guaiFENesin [Guaifenesin] 100 mg PO Q4H PRN 06/03/17 06/03/17 History Allergies Allergy/AdvReac Type Severity Reaction Status Date / Time Iodinated Contrast- Oral and Allergy Unknown Verified 06/03/17 16:28 IV Dye Exam Vital Signs: Temperature 98.6 F 06/04/17 15:29 Pulse Rate 83 06/04/17 15:29 Respiratory Rate 22 06/04/17 15:29 Blood Pressure 151/63 H 06/04/17 15:29 Pulse Oximetry 93 06/04/17 15:29 EXAM: General-NAD, alert but nonverbal, tracks examiner with her eyes HEENT-PERRL, EOMI without nystagmus, conjugate gaze, conjunctiva clear, sclera anicteric, facial structures symmetric, oropharynx clear, neck supple and without adenopathy Lungs-respirations nonlabored, fair airflow, breath sounds coarse lower and mid lung holliday bilateral anterior holliday Cardiac-regular rhythm, S1-S2 Abd-soft, nontender, bowel sounds active Ext-without edema Skin-without rash/wounds MS-minor degenerative changes in the small joints of the hands Neuro-cranial nerves 3-12 grossly intact, increased motor tone R>L upper extremities, no rest tremor present but tremor palpable with recovery collector, slow drift of both upper extremities, charter and tour bus driver comparable, doesn't follow commands well to assess power lower extremities and there is generalized lower extremity weakness with possible right weakness greater than left distally; withdraws extremities x 4 weakly to tickle Psych-calm, smiles intermittently Telemetry Rhythm: Sinus Rhythm Height/Weight/BMI: Height 1.63 m Weight 60.4 kg Body Mass Index 22.3 Results - Labs CBC & Chem 7: 06/04/17 03:59 06/04/17 03:59 Labs: Differential unremarkable ABG 7.55/30/86/26 98%-reported to be on room air but patient is been on 4 L oxygen continually since arrival AST 52, ALT 55 on admission ProBNP 3470 Lactic acid 1.6-0.8; procalcitonin 0.61-0.53 Microbiology Results: Blood cultures 2 drawn 06/03 negative to date - Imaging and Cardiology Chest x-ray Status: image reviewed by me (left basilar infiltrate/atelectasis, fluid in the fissures, hiatal hernia) Assessment and Plan Assessment and Plan: Impression: Acute hypoxic respiratory failure Left lower lobe pneumonia Severe sepsis Dehydration Recent influenza A Thrombocytosis, likely reactive Parkinson's disease Chronic normocytic anemia GERD h/o depression Plan: Patient is hospitalized with acute hypoxic respiratory failure due to recent influenza A and new left lower lobe infiltrate. Antibiotics were initiated overnight with Rocephin and vancomycin. Cultures are pending. Continue current antibiotics in conjunction with hydration and supportive care. Home medications continued for Parkinson's disease, GERD, and depression. Have asked speech therapy to evaluate for possible aspiration-certainly high risk with underlying Parkinson's disease and general debilitation, and PT/OT to evaluate as patient' s daughter reports that she is typically able to assist with transfers and has been unable to do so for the past week or slightly longer since she's been ill. I suspect thrombocytosis is reactive with chronic anemia will screen for iron deficiency. Pneumonia severity index-127, presenting 9.3% mortality risk qSOFA 2 - Physician Narrative Narrative: Date: 06/04/17 Time: 1603 Hospital Course Summary Disclaimer: The visit summary below is not to be considered part of the above Progress Note. Hospital Course: Patient is hospitalized with acute hypoxic respiratory failure due to recent influenza A and new left lower lobe infiltrate. Antibiotics were initiated overnight with Rocephin and vancomycin. Cultures are pending. Continue current antibiotics in conjunction with hydration and supportive care. Home medications continued for Parkinson's disease, GERD, and depression. Have asked speech therapy to evaluate for possible aspiration-certainly high risk with underlying Parkinson's disease and general debilitation, and PT/OT to evaluate as patient' s daughter reports that she is typically able to assist with transfers and has been unable to do so for the past week or slightly longer since she's been ill. I suspect thrombocytosis is reactive with chronic anemia will screen for iron deficiency. Pneumonia severity index-127, presenting 9.3% mortality risk qSOFA 2
[2017-06-04 16:14] VITALS: BMI 22.8
[2017-06-04] MEDS: CEFTRIAXONE 1 G in NS 100 ML IV SCH (18:32)
[2017-06-04] MEDS: RASAGILINE 0.5 MG TABLET PO SCH (20:42)
[2017-06-04] MEDS: SERTRALINE 50 MG TABLET PO SCH (20:42)
[2017-06-04] MEDS: OMEPRAZOLE 20 MG CAPSULE PO SCH (20:42)
[2017-06-04] MEDS ORDERED: FALL RISK - PHARMACY CONSULT XX ONE (22:08)
[2017-06-05] MEDS: ACETAMINOPHEN 500 MG TABLET PO PRN ×2 (00:45→21:43)
[2017-06-05] MEDS: NS 1,000 ML IV SCH (00:53)
--- NOTE | 2017-06-05 08:40 | Progress Note ---
- Date 06/05/17 Subjective: Tammi was awake, eating breakfast. Her granddaughter/field seismologist (Kacey) was feeding her. Kacey spent the night, and states that neither of them were able to sleep well. She hasn't seen any evidence of discomfort or difficulty breathing. She isn't having any problems eating and Kacey denies choking episodes. Her appetite is good this morning. Objective Vital signs: Temperature 96.8 F 06/05/17 07:37 Pulse Rate 79 06/05/17 07:37 Respiratory Rate 22 06/05/17 07:37 Blood Pressure 180/97 H 06/05/17 07:37 Pulse Oximetry 93 06/05/17 07:37 Height/Weight/BMI: Height 1.63 m Weight 60.4 kg Body Mass Index 22.8 - Constitutional Present: no acute distress, well nourished, well developed, thin - Routine HEENT Exam Head: Present: normocephalic Eye: Present: PERRL. Absent: conjunctival icterus, scleral injection - Routine Respiratory Exam Present: CTA bilaterally Comments: upper airway noise - Routine Cardiovascular Exam Present: RRR, S1, S2 - Routine Abdominal Exam Present: soft, normoactive bowel sounds, non distended, non tender - Routine Extremities Exam Present: edema (trace), pulses intact - Routine Back/Spine/Pelvis Exam Back/Spine: Present: kyphosis - Routine Musculoskeletal Exam Musculoskeletal: Present: no erythema - Routine Skin Exam Present: intact, dry, warm, ecchymosis (distal 4th & 5th MT area on right foot) - Routine Neurological Exam Present: alert - Routine Psychiatric Exam Present: unable to assess Results - Labs CBC & Chem 7: 06/05/17 04:46 06/05/17 04:46 Assessment and Plan Assessment and Plan: Impression: Acute hypoxic respiratory failure Left lower lobe pneumonia Elevated BP Possible severe sepsis: ruled out. Dehydration Recent influenza A Thrombocytosis, likely reactive Parkinson's disease Chronic normocytic anemia GERD h/o depression Plan: Continue Rocephin and vancomycin. Breathing comfortably on room air. PO intake improving; will DC IVF. Thrombocytosis improving. BP elevated this am (180/97); recheck before starting an antiHTN (she does not take antiHTN on routine basis). PT eval -- found that pt was at baseline. Iron studies pending. D/W field seismologist and with Dr. Nolasco. DVT Prophylaxis: SCD's Resuscitation Status: Do Not Resuscitate - Physician Narrative Physician: Debbie Nloasco MD Narrative: Date: 06/05/17 Time: 1610 I have independently evaluated and examined this patient. I reviewed the chart, the patient's history, and the BILLET WORKER/PA's documented findings as above. We discussed and formulated the assessment and plan as above with additions as below: Mrs. Aguilar was seen with her son-in-law at the bedside. He reports she seemed to to be at baseline in terms of level of alertness. She continues to cough frequently but has had no sputum production. Oral intake is good. Oxygen saturation has varied through the day requiring 1 L of oxygen this afternoon after being on room air with acceptable saturations earlier. NAD, awake, regards examiner Frequent cough, coarse breath sounds anteriorly-sounds partially clear with cough; no wheezing Abdomen benign; increased motor tone as described yesterday. Chest x-ray reviewed by myself demonstrates small infiltrate left base, no evidence of volume overload. Iron studies pending Continue supportive care with current antibiotics. Ineffective cough, unable to handle secretions. May require intermittent suctioning. Hospital Course Summary Disclaimer: The visit summary below is not to be considered part of the above Progress Note. Hospital Course: 06/04/17 Patient is hospitalized with acute hypoxic respiratory failure due to recent influenza A and new left lower lobe infiltrate. Antibiotics were initiated overnight with Rocephin and vancomycin. Cultures are pending. Continue current antibiotics in conjunction with hydration and supportive care. Home medications continued for Parkinson's disease, GERD, and depression. Have asked speech therapy to evaluate for possible aspiration-certainly high risk with underlying Parkinson's disease and general debilitation, and PT/OT to evaluate as patient' s daughter reports that she is typically able to assist with transfers and has been unable to do so for the past week or slightly longer since she's been ill. I suspect thrombocytosis is reactive with chronic anemia will screen for iron deficiency. Pneumonia severity index-127, presenting 9.3% mortality risk 06/05/17 Continue Rocephin and vancomycin. Breathing comfortably on room air. PO intake improving; will DC IVF. Thrombocytosis improving. Iron studies pending. BP elevated this am (180/97); recheck before starting an antiHTN (she does not take antiHTN on routine basis). PT eval -- found that pt was at baseline.
--- NOTE | 2017-06-05 09:09 | XRay Report ---
Indication: pneumonia, hypoxia PROCEDURE: XR chest 1V: Encounter: Initial Comparison: June 03, 2017 Findings: Continued airspace opacity in the left lower lobe with obscuration of left hemidiaphragm and a small left effusion. Mild motion artifact. Right lung is stable. No pneumothorax. Heart size and mediastinal contours are unchanged. Impression: Stable appearance of the chest. .
[2017-06-05] MEDS: SALINE FLUSH 10ml SYRINGE IVF PRN ×3 (10:35→23:27)
--- NOTE | 2017-06-05 11:26 | Pharmacy Consult-Antibiotics ---
Pharmacy Consult-Vancomycin - Laboratory Information WBC 6.9 T/MM3 (4.5-11.0) 06/05/17 04:46 BUN 16.0 MG/DL (7-17) D 06/05/17 04:46 Creatinine 0.6 MG/DL (0.7-1.2) L D 06/05/17 04:46 Procalcitonin 0.53 NG/ML 06/04/17 03:59 Vancomycin Trough 10.65 UG/ML (15-20) L 06/05/17 04:55 - Consult Information Vancomycin protocol: day 2 Today's Vanco trough is 10.65 mcg/ml which is slightly low compared to our goal trough range of 15 to 20 mcg/ml. However this 87 year old patient is most likely not to steady state after 2 doses. Will make no changes to the Vanco 1 gm IV Q18H order at this time. Will obtain another trough 06/06/17 @1630 and access from there. Thank you, Aileen Keita [facility]
[2017-06-05] MEDS ORDERED: BISACODYL 10 MG SUPPOSITORY RECTALLY PRN (11:37)
[2017-06-05] MEDS: CEFTRIAXONE 1 G in NS 100 ML IV SCH (18:00)
[2017-06-05] MEDS: RASAGILINE 0.5 MG TABLET PO SCH (21:38)
[2017-06-05] MEDS: OMEPRAZOLE 20 MG CAPSULE PO SCH (21:38)
[2017-06-05] MEDS: SERTRALINE 50 MG TABLET PO SCH (21:38)
[2017-06-06] MEDS: ACETAMINOPHEN 500 MG TABLET PO PRN ×2 (02:33→21:45)
--- NOTE | 2017-06-06 16:13 | Progress Note ---
- Date 06/06/17 Subjective: Tammi was awake, mostly nonverbal but smiles and giggles frequently. Her daughter and son-in-law were at bedside. She has had more of a cough today, but in retrospect she's had a cough for the last 3 weeks. She seems to be breathing better today. She has been eating well, actually eating better than she does at home (she is on a regular diet vs pureed at home). She was moaning some during the night, but family also admit that this has been on and off ever since she fell ill. Objective Vital signs: Temperature 96.7 F L 06/06/17 08:00 Pulse Rate 84 06/06/17 08:00 Respiratory Rate 18 06/06/17 08:00 Blood Pressure 154/83 H 06/06/17 08:00 Pulse Oximetry 92 06/06/17 15:28 Height/Weight/BMI: Height 1.63 m Weight 62.7 kg Body Mass Index 22.8 - Constitutional Present: no acute distress, well nourished, well developed, thin - Routine HEENT Exam Head: Present: normocephalic Eye: Present: PERRL. Absent: conjunctival icterus, scleral injection ENT: Present: mucous membranes moist - Routine Respiratory Exam Present: decreased breath sounds (bases), crackles (b/l bases, left greater than right) - Routine Cardiovascular Exam Present: RRR, S1, S2 - Routine Abdominal Exam Present: soft, normoactive bowel sounds, non distended, non tender - Routine Extremities Exam Present: no edema, pulses intact - Routine Musculoskeletal Exam Musculoskeletal: Present: other (muscular stiffness) - Routine Skin Exam Present: intact, dry, warm, ecchymosis (right foot, distal 4-5th MT area) - Routine Neurological Exam Present: alert - Routine Psychiatric Exam Present: cooperative Results - Labs CBC & Chem 7: 06/06/17 04:18 06/06/17 04:18 Assessment and Plan Assessment and Plan: Impression: Acute hypoxic respiratory failure - improving Left lower lobe pneumonia Elevated BP Possible severe sepsis: ruled out. Dehydration Recent influenza A Thrombocytosis, likely reactive - resolved Parkinson's disease Chronic normocytic anemia GERD h/o depression Plan: Has been on room air for much of the day but coughing has increased some today. Will obtain overnight oximetry tonight. Doing well on pureed diet but there is underlying concern for aspiration. Continue Rocephin and vancomycin. Renal function stable on vanco. WBC is normal at 8.2; hgb stabilized at 9.8. Platelets are down to 387. Iron studies pending. While she had a couple elevated BP readings yesterday, today BP is only moderately elevated. Discussed with family, Dr. Nolasco. DVT Prophylaxis: SCD's GI Prophylaxis: other (omeprazole) Resuscitation Status: Do Not Resuscitate - Physician Narrative Physician: Debbie Nolasco MD Narrative: Date: 06/06/17 Time: 1630 I have independently evaluated and examined this patient. I reviewed the chart, the patient's history, and the INDUSTRIAL REGISTERED NURSE/PA's documented findings as above. We discussed and formulated the assessment and plan as above with additions as below: Mrs. Aguilar was seen earlier today with her son-in-law at the bedside. He reports that she's more alert today. Oral intake remains good. Oxygen was continued overnight after the patient desaturated on room air yesterday afternoon. Saturations been unremarkable on room air today. Patient regards examiner and tracks with her eyes but does not respond verbally. Respirations are nonlabored with occasional cough; posterior breath sounds are relatively clear, lower holliday anteriorly are slightly coarse but much improved from admission. Overnight oximetry tonight, repeat chest x-ray in a.m. Hospital Course Summary Disclaimer: The visit summary below is not to be considered part of the above Progress Note. Hospital Course: 06/04/17 Patient is hospitalized with acute hypoxic respiratory failure due to recent influenza A and new left lower lobe infiltrate. Antibiotics were initiated overnight with Rocephin and vancomycin. Cultures are pending. Continue current antibiotics in conjunction with hydration and supportive care. Home medications continued for Parkinson's disease, GERD, and depression. Have asked speech therapy to evaluate for possible aspiration-certainly high risk with underlying Parkinson's disease and general debilitation, and PT/OT to evaluate as patient' s daughter reports that she is typically able to assist with transfers and has been unable to do so for the past week or slightly longer since she's been ill. I suspect thrombocytosis is reactive with chronic anemia will screen for iron deficiency. Pneumonia severity index-127, presenting 9.3% mortality risk 06/05/17 Continue Rocephin and vancomycin. Breathing comfortably on room air. PO intake improving; will DC IVF. Thrombocytosis improving. Iron studies pending. BP elevated this am (180/97); recheck before starting an antiHTN (she does not take antiHTN on routine basis). PT eval -- found that pt was at baseline. 06/06/17 Has been on room air for much of the day but coughing has increased some today. Will obtain overnight oximetry tonight. Doing well on pureed diet but there is underlying concern for aspiration. Continue Rocephin and vancomycin. Renal function stable on vanco. WBC is normal at 8.2; hgb stabilized at 9.8. Platelets are down to 387. Iron studies pending. While she had a couple elevated BP readings yesterday, today BP is only moderately elevated.
--- NOTE | 2017-06-06 17:45 | Pharmacy Consult-Antibiotics ---
Pharmacy Consult-Vancomycin - Laboratory Information WBC 8.2 T/MM3 (4.5-11.0) 06/06/17 04:18 BUN 13.0 MG/DL (7-17) 06/06/17 04:18 Creatinine 0.6 MG/DL (0.7-1.2) L 06/06/17 04:18 Procalcitonin 0.53 NG/ML 06/04/17 03:59 Vancomycin Trough 12.30 UG/ML (15-20) L 06/06/17 16:34 - Consult Information VANCOMYCIN CONSULT: Vancomycin Trough = 12.3 mcg/ml. Today's SCr = 0.6 mg/dl. Will increase Vancomycin to 1,250 mg IV q18hrs. Will continue to monitor and make adjustments accordingly. Thank you.
[2017-06-06] MEDS: CEFTRIAXONE 1 G in NS 100 ML IV SCH (19:28)
[2017-06-06] MEDS: GUAIFENESIN 200mg/10ml ORAL LIQUID PO PRN (21:44)
[2017-06-06] MEDS: SERTRALINE 50 MG TABLET PO SCH (21:46)
[2017-06-06] MEDS: RASAGILINE 0.5 MG TABLET PO SCH (21:46)
[2017-06-06] MEDS: OMEPRAZOLE 20 MG CAPSULE PO SCH (21:46)
[2017-06-07] MEDS: GUAIFENESIN 200mg/10ml ORAL LIQUID PO PRN (02:12)
[2017-06-07 05:22] VITALS: O2SAT 92
[2017-06-07 07:25] VITALS: BP 160/85; PULSE 82; RESP 16; TEMP 96.2
--- NOTE | 2017-06-07 08:08 | XRay Report ---
Indication: pneumonia PROCEDURE: XR chest 1V: Encounter: Initial Comparison: June 05, 2017 Findings: Persistent airspace consolidation in the right upper and left lower lobes. Small left pleural effusion is stable. No pneumothorax or new infiltrates. Heart size and mediastinal contours are unchanged. Pulmonary vascularity is stable. Impression: Stable bilateral airspace disease. .
--- NOTE | 2017-06-07 10:02 | Discharge Summary ---
Discharge Information Date of admission: 06/03/17 19:53 Anticipated date of discharge: 06/07/17 Attending Physician: Debbie Nolasco MD Primary care physician: Willy Shankar DO - Discharge Diagnosis (1) Hypoxia Status: Resolved DISCHARGE DIAGNOSES Acute hypoxic respiratory failure - RESOLVED Pneumonia, suspect aspiration Elevated BP Possible severe sepsis: ruled out. Dehydration - RESOLVED Recent influenza A Thrombocytosis, likely reactive - RESOLVED CHRONIC CONDITIONS Parkinson's disease Chronic normocytic anemia GERD h/o depression - Laboratory Labs: 06/06/17 04:18 06/07/17 04:28 - Microbiology Blood cultures: no growth after 3 days - Radiology Radiology: SERIAL CXR 06/04/17 FINDINGS: Hazy airspace opacity in the left lower lobe. Right lung is stable and grossly clear. No pleural effusion or pneumothorax. Heart size and mediastinal contours are stable. Pulmonary vascularity is normal. Hiatal hernia. Impression: Left lower lobe atelectasis, pneumonia or aspiration. 06/05/17 Findings: Continued airspace opacity in the left lower lobe with obscuration of left hemidiaphragm and a small left effusion. Mild motion artifact. Right lung is stable. No pneumothorax. Heart size and mediastinal contours are unchanged. Impression: Stable appearance of the chest. 06/07/17 Findings: Persistent airspace consolidation in the right upper and left lower lobes. Small left pleural effusion is stable. No pneumothorax or new infiltrates. Heart size and mediastinal contours are unchanged. Pulmonary vascularity is stable. Impression: Stable bilateral airspace disease. History of Present Illness HPI: Mrs. Aguilar is an 87 year-old who lives at home with family support who presented today to ED yesterday evening with cough, low-grade fever, dyspnea, and oxygen saturations in the 80s on room air. She was recently diagnosed clinically as having Influenza A approximately 10 days ago by her PCP (had fevers, cough, congestion at the time after exposure to close contact with known influenza A) but patient was outside the window for treatment with Tamiflu but was started on Zpak. She seemed to initially improve somewhat but did not return to baseline per family's report. Over the past 4-5 days she's had gradually increasing dyspnea with persistent nonproductive cough. For several days her oxygen saturation has intermittently been 86-88% and she's had low-grade fever typically no higher than 100. She has also had some intermittent "moaning" and decreased appetite and po intake with concentrated urine. Due to persistent hypoxia she was taken to the emergency room by family members for further evaluation. There chest x-ray demonstrated left lower lobe pneumonia and IV antibiotics were initiated. BNP was elevated at 3470 and lactic acid 1.6. 4 L supplemental oxygen was necessary to maintain saturation above 90% during ER evaluation. Patient started on Rocephin and subsequently decision made to add Vancomycin IV given recent recent influenza. The patient does not provide any history which is baseline per family members who are at the bedside when evaluated. Objective Vital signs: Temperature 96.2 F L 06/07/17 07:21 Pulse Rate 82 06/07/17 07:21 Respiratory Rate 16 06/07/17 07:21 Blood Pressure 160/85 H 06/07/17 07:21 Pulse Oximetry 92 06/07/17 07:21 Height/Weight/BMI: Height 1.63 m Weight 60.6 kg Body Mass Index 22.8 - Constitutional Present: no acute distress, well nourished, well developed - Routine HEENT Exam Head: Present: normocephalic Eye: Absent: conjunctival icterus, scleral injection ENT: Present: mucous membranes dry - Routine Respiratory Exam Present: CTA bilaterally (anteriorly) - Routine Cardiovascular Exam Present: RRR, S1, S2 - Routine Abdominal Exam Present: soft, normoactive bowel sounds, non distended, non tender - Routine Extremities Exam Present: no edema, pulses intact - Routine Skin Exam Present: intact, dry, warm, ecchymosis (ecchymosis to right foot) - Routine Neurological Exam Present: alert. Absent: oriented X3 - Routine Psychiatric Exam Present: cooperative Hospital Course This is a general summary of the patient's hospital course. For more details refer to the complete medical record. Hospital course: 06/03/17: ADMISSION Hospitalized with acute hypoxic respiratory failure due to recent influenza A and new left lower lobe infiltrate. Rocephin and vancomycin were initiated. Home medications continued for Parkinson's disease, GERD, and depression. Speech therapy was asked to evaluate for possible aspiration-certainly high risk with underlying Parkinson's disease and general debilitation. PT/OT also consulted, as patient's daughter reports that she is typically able to assist with transfers and has been unable to do so for the past week. Thrombocytosis likely reactive; iron studies ordered d/t anemia. 06/05/17: Still requiring oxygen to maintain saturations but able to tolerate some periods on room air. IVF were discontinued. Thrombocytosis improving. BP elevated this am (180/97) and improved without need for antihypertensives. PT evaluated her and reported that pt was at baseline. 06/06/17: On room air for much of the day but coughing has increased some. She has been doing well on pureed diet but there is underlying concern for aspiration. WBC is normal at 8.2; hgb stabilized at 9.8. Platelets are down to 387. BP moderately elevated. 06/07/17: DISCHARGE Overnight oximetry was done -- she does not require nocturnal oxygen. Mental status back to baseline. Iron studies: iron was low at 31, TIBC 191. Consider starting OTC iron, though there is an interaction with carbidopa/levodopa (combination might decrease the effectiveness of Parkinson med). CXR repeated and persistent RUL and LLL infiltrates were noted. Will DC home on Augmentin x5 days to complete a 10-day course. Recommend to continue with pureed diet and nectar thick liquids with swallow precautions d/t concern for aspiration. Will likely need further discussions on goals of care. F/U with Dr. Shankar in 1 week. Time spent with patient: discharge greater than 30 minutes Resuscitation Status: Do Not Resuscitate Discharge Plan - Discharge Disposition Discharge Date: 06/07/17 Disposition: 01 Discharged Home, Self-Care *Condition: Improved Reason For Visit (Visit label in EMR): CAP, Hypoxia - Discharge Medications *Discharge Medications: New Amoxicillin/Potassium Clav [Augmentin 875-125 Tablet] 1 each PO BIDWM #11 tab Continue Rasagiline Mesylate 0.5 mg PO HS Acetaminophen [Acetaminophen Extra Strength] 500 mg PO Q4H PRN PRN Reason: Pain Carbidopa/Levodopa [Carbidopa-Levodopa 25-100 Tab] 1.5 tab PO QID guaiFENesin [Guaifenesin] 100 mg PO Q4H PRN PRN Reason: Prn Orders Sertraline [Zoloft] 50 mg PO HS Omeprazole [Prilosec] 20 mg PO HS - Discharge Packet/Instructions *Diet: pureed diet and nectar thick liquids with swallow precautions *Activity: may resume normal activity level without restrictions *Pain Management/Treatment: Tylenol if needed *Wound Care: Provide good skin care and monitor sacrum and bony areas closely for signs of breakdown Additional Instructions: Her overnight oximetry went well and she will not need oxygen at home. *Expected Signs/Symptoms: She will likely continue to cough, and if she is aspirating she may cough indefinitely. She may have some choking episodes (she is high risk for aspiration given her Parkinson's and deconditioned status). *Notify Physician if: difficulty breathing, fever, passing out or changes in mentation, vomiting or choking, diarrhea, dehydration, or any new concerns. *During Business Hours Contact: Dr. Shankar at [facility] *After Business Hours Contact: The on-call provider for Dr. Shankar. *Pending Lab/Results: No Pending Lab - Referrals/Follow Up *Referrals/Follow Up: Willy Shankar DO [Family Provider] - 1 Week - Patient Handouts Patient Handouts: Pneumonia (GEN) - Dismissal Complete Discharge Instructions are:: Complete Physician Narrative - Narrative Physician: Debbie Nolasco MD Attestation Narrative: Date: 06/07/17 Time: 1844 I have independently evaluated and examined this patient. I reviewed the chart, the patient's history, and the APPARATUS ENGINEERING TECHNOLOGIST/PA's documented findings as above. We discussed and formulated the assessment and plan as above with additions as below: Mrs. Aguilar was seen initially without family present-she was pleasant and smiling but nonverbal as usual. Subsequently family members were present and findings of today's chest x-ray were reviewed with them; I advised him that I'm concerned that she is a silent aspirator and reasonable precautions should be taken at home to minimize recurrence although recurrent aspiration cannot be entirely avoided. Respirations were nonlabored and anterior breath sounds were almost entirely clear. She coughed occasionally but minimally. Stable for discharge-plan 5 additional [address] Aug[address]in. Dr[address] Shankar notified of discharge.
[2017-06-07] MEDS ORDERED: AMOX/CLAV 875 MG/125 MG TABLET PO ONE (10:32)
== END 2017-06-07 11:50 | disposition home or self-care (01) | DRG 177 ==
LOC: ED 15:59 → MED 19:53
PROVIDERS: ADMIT Internal Medicine; ATTEND Internal Medicine